=== PATIENT | male | born 1970 | race Caucasian/White ===

== ENCOUNTER 2017-03-21 10:36 | Inpatient (IN) | payer BC, OTHER ==
[2017-03-21 11:12] LABS: #Basophils 0.1 thou/uL (0.0-0.2); #Eosinphils 0.2 thou/uL (0.0-0.7); #Lymphocytes 2.7 thou/uL (1.20-3.40); #Monocytes 0.6 thou/uL (0.11-0.59); #Neutrophils 2.9 thou/uL (1.40-6.50); %Basophils 0.9 % (0.0-1.0); %Eosinophils 2.6 % (0.0-10.0); %Monocytes 9.7 % (0.0-10.0); %Neutrophils 44.8 % (42.0-75.0); Hemoglobin 16.3 g/dL (14.0-18.0); Mean Corpuscular HGB CONC 34.8 g/dL (32.0-36.0); Mean Corpuscular Hemoglobin 32.4 pg (27.0-31.0); Mean Corpuscular Volume 93.3 fl (80.0-94.0); Mean Platelet Volume 7.5 fL (7.4-10.4); Platelet Count 282 thou/uL (130-400); RBC Distribution Width 11.4 % (11.5-14.5); Red Blood Cell (RBC) Count 5.03 mill/uL (4.70-6.10); White Blood Cell (WBC) Count 6.5 thou/uL (4.8-10.8)
--- NOTE | 2017-03-21 11:23 | RAD ---
PORTABLE CHEST: Date: 03/21/17 PROVIDED CLINICAL HISTORY: Chest pain. FINDINGS: Comparison with 11/13/12. Cardiac and mediastinal silhouette is unchanged in appearance. Left subclavian cardiac pacing device is again noted in similar location. This obscures portions of the left upper chest. Given this limita tion, there is no focal air space disease, pleural fluid, or pneumothorax apparent. IMPRESSION: No evidence for an acute cardiopulmonary process with limitations as above. POS: [facility]
[2017-03-21 11:44] LABS: ALT (SGPT) 62 U/L (8-55); AST (SGOT) 37 U/L (5-34); Albumin 4.6 g/dL (3.5-5.0); Alkaline Phosphatase 45 U/L (40-150); Anion Gap 13 mmol/L (10-20); BUN (Urea Nitrogen) 9 mg/dL (8.9-20.6); Bilirubin, Total 0.4 mg/dL (0.2-1.2); CK (CPK) 305 U/L (30-200); Calc. Creatinine Clearance 0 mL/min (70-130); Calcium 9.8 mg/dL (7.8-10.44); Carbon Dioxide 20 mmol/L (22-29); Chloride 103 mmol/L (98-107); Estimated GFR-MDRD Greater than 90; Globulin 2.9 g/dL (2.4-3.5); Glucose 280 mg/dL (70-105); Lipase 30 U/L (8-78); Protein, Total 7.5 g/dL (6.0-8.3); Sodium 132 mmol/L (136-145)
[2017-03-21 11:46] LABS: CKMB 6.1 ng/mL (0-6.6)
[2017-03-21 11:49] LABS: Troponin I 0.659 ng/mL (< 0.028)
[2017-03-21] MEDS ORDERED: Nitroglycerin 2% Ointment 1 INCH/1 GM Packet ONE (12:18)
[2017-03-21] MEDS ORDERED: Enoxaparin Sodium 40 MG/0.4 ML SYRINGE ONE (12:18)
[2017-03-21] MEDS ORDERED: Enoxaparin Sodium 100 MG/ML SYRINGE ONE (12:18)
--- NOTE | 2017-03-21 14:12 | HP ---
PRIMARY CARE PHYSICIAN: Sy Burch M.D. CHIEF COMPLAINT: Chest pressure. HISTORY OF PRESENT ILLNESS: This is a 46-year-old white male with insulin-dependent diabetes mellitu s as well as history of vasospastic angina who previously had a defibrillator placed and follows with Dr. Castelan, had stent 10 years ago, but no catheterization since then. Patient reports that he wa s feeling fine until about 3-6 months ago when he started developing chest pressure, squeezing sensat ion usually was at night. Dr. Castelan adjusted his medications around and then early this morning a round 5:30, patient developed severe squeezing chest pain, felt like an anaconda wrapped around his c hest, pain was radiating to his back, also radiating up into his jaw. No associated symptoms besides some shortness of breath and dizziness. The pain lasted for about 4-5 hours, quit around 10:00 this morning. Because as it lasted much longer than previous episodes, he came into the emergency room. In the ER, the patient was found to have an elevated troponin of 0.6. His EKG was unremarkable. Th e patient is being admitted for non-ST elevation LA. PAST MEDICAL HISTORY: 1. Vasospastic angina. 2. Hypertension. 3. Hyperlipidemia. 4. Hypertriglyceridemia. 5. Diabetes mellitus type 2, insulin-dependent. PAST SURGICAL HISTORY: 1. Defibrillator/pacemaker placement. 2. Cardiac stent x1. 3. Left ACL surgery. 4. Hernia repair. PAST PSYCHIATRIC HISTORY: Anxiety. SOCIAL HISTORY: Patient is a previous smoker, quit 8 months ago. No illicit drug use, drinks social ly. FAMILY HISTORY: One brother with vasospastic angina. One brother of a heart attack in his 30s. Mother had a triple bypass surgery. No family history of diabetes. ALLERGIES: No known drug allergies. CURRENT MEDICATIONS: 1. Aspirin 325 mg daily. 2. Basaglar insulin 20 units subcu each morning. 3. Xanax 0.5 mg as needed for anxiety, uses just about once a week or so. 4. Metoprolol extended release 50 mg daily. 5. Fenofibrate 145 mg daily. 6. Isosorbide mononitrate 120 mg each night. 7. Diltiazem, unknown dose twice a day. 8. Niacin 1000 mg at night. 9. Atorvastatin 20 mg daily. REVIEW OF SYSTEMS: Constitutional: No fevers, no chills. Eyes: No double vision or blurred vision . ENT: No congestion, drainage or sore throat. Cardiovascular: See HPI. Pulmonary: He has bronchitis with prolonged cough last month that has mostly gone now, and occasiona l cough, nonproductive. No wheezing, no shortness of breath. Currently, he did have a little bit of shortness of breath with this chest pain earlier. Gastrointestinal: No abdominal pain, no nausea, vomiting, no diarrhea or constipation. He does get runny stools occasionally. Genitourinary: No dysuria or hematuria. Musculoskeletal: He has some chronic low back pain from pr evious fracture of the spine. Skin: No rashes or other lesions he is noted. Neurologic: No numbne ss, tingling or focal weakness. PHYSICAL EXAMINATION: VITAL SIGNS: Blood pressure 137/89, pulse 71, respirations 12, temperature 97.4, O2 sat 96% on room air. GENERAL: This is a well-developed, obese white male, in no apparent distress. HEENT: Pupils equally round and reactive to light. Oropharynx clear without lesions, erythema or ex udate. NECK: Supple, no lymphadenopathy, no thyroid nodules or enlargement, no JVD. HEART: Regular rate and rhythm, no murmurs, rubs or gallops. LUNGS: Clear to auscultation bilaterally, no wheezes, crackles or rhonchi. ABDOMEN: Soft, nontender to palpation, normoactive bowel sounds, no hepatosplenomegaly or other mass es. EXTREMITIES: No clubbing, cyanosis or edema. SKIN: No rashes or other lesions noted. NEUROLOGIC: The patient has intact strength and reflexes in all extremities and no facial droop. PSYCHIATRIC: Alert and oriented x3, normal mood and affect. LABORATORY DATA AND IMAGING: CBC within normal limits. Complete metabolic panel notable for a sodiu m of 132, carbon dioxide of 20, glucose of 280, AST elevated at 37, ALT 62. These are new elevations . Creatinine kinase is elevated at 305, and the rest of CMP was normal. His troponin was 0.659 and CK-MB was 6.1. Brain natriuretic peptide was 56. Chest x-ray: I did review the chest x-ray done in the emergency room along with the radiologist's report. There is a previous pacer in place, no acut e findings, no infiltrates in the lungs. EKG: I did review the EKG done in the emergency room, whic h shows an atrial paced rhythm with normal axis, no ST segment changes, no T-wave changes, no evidenc e of acute ischemia. ASSESSMENT: 1. Non-ST elevation myocardial infarction. This is possibly due to patient's vasospastic angina magdaleno jeffrey progressive coronary artery disease over the last 10 years since he last had a catheterization an d a stent. The patient has been given Lovenox in the emergency room. [facility] to [facility] t [facility] along with full dose of Lovenox and we will consult Dr. Castelan. Dr. Colvin is technology adoption manager to day for him. 2. Hypertension. We will resume home blood pressure medications. 3. Hyperlipidemia. We will resume atorvastatin. 4. Insulin-dependent diabetes mellitus. We will resume patient's morning long-acting insulin along with a low insulin sliding scale and diabetic diet. 5. Gastrointestinal prophylaxis. Put the patient on Pepcid twice a day. 6. Deep venous thrombosis prophylaxis. Patient is already on Lovenox. CODE STATUS: Patient is a FULL CODE. Should he be incapacitated, his , Darlin Bradley would be hi s medical power of real estate attorney.
[2017-03-21 14:55] LABS: Troponin I 3.402 ng/mL (< 0.028)
[2017-03-21] MEDS ORDERED: Ondansetron HCl/PF 4 MG/2 ML Vial IVP PRN (15:09)
[2017-03-21] MEDS ORDERED: ALPRAZolam 0.5 MG TAB PO PRN (15:09)
[2017-03-21] MEDS ORDERED: Ondansetron ODT 4 MG TAB PO PRN (15:09)
[2017-03-21] MEDS ORDERED: Bisacodyl 5 MG TAB PO PRN (15:09)
[2017-03-21] MEDS ORDERED: Acetaminophen 650 MG Suppository PR PRN (15:09)
[2017-03-21] MEDS ORDERED: Dextrose 5% in Water 1,000 ML IV PRN (15:09)
[2017-03-21] MEDS ORDERED: Acetaminophen 325 MG TAB PO PRN (15:09)
[2017-03-21] MEDS ORDERED: Dextrose 50% Abboject 50 ML SYRINGE SLOW IVP PRN (15:09)
[2017-03-21] MEDS: Nitroglycerin 2% Ointment 1 INCH/1 GM Packet TOP SCH ×2 (16:40→21:15)
[2017-03-21 16:56] VITALS: BMI 36.2
[2017-03-21] MEDS: HumaLOG 300 UNITS/3 ML VIAL SC PRN ×2 (17:03→22:05)
[2017-03-21 17:38] LABS: Troponin I 5.524 ng/mL (< 0.028)
--- NOTE | 2017-03-21 18:01 | CON ---
DATE OF CONSULTATION: 03/21/2017 REASON FOR CONSULTATION: Non-Q wave myocardial infarction. PRIMARY PROFESSIONAL DRIVER: Wilbur Castelan M.D. REFERRING PROVIDER: Eran Cyr M.D. HISTORY OF PRESENT ILLNESS: Mr. Bradley is a very pleasant 46-year-old gentleman who has been seen an d evaluated by Dr. iWlbur Castelan in the past. He has a history of CAD, status post stent placement . He recently states he was seen by Dr. Wilbur Castelan several months ago. His medications were ad justed to evening dosage. His symptoms of angina improved, but have recurred. He states this mornin g he had an episode of pain for 4 hours. It has not completely resolved. He is back to his normal s mosqueda. He did receive an injection of Lovenox while in the emergency room. PAST MEDICAL HISTORY: Hypertension, ICD, diabetes mellitus, hyperlipidemia, CAD status post stent pl acement to the LAD with a Taxus stent in 2007, hypertriglyceridemia, and diabetes mellitus. ALLERGIES: None. HOME MEDICATIONS: Include atorvastatin, aspirin, metformin, Xanax, Cardizem, Nitrostat, metoprolol, isosorbide, Niaspan and Antara. REVIEW OF SYSTEMS: Ten-point review of systems is reviewed and is as above negative. PHYSICAL EXAMINATION: GENERAL: Patient is a pleasant male who is in no acute distress. The patient appears his stated age. VITAL SIGNS: Blood pressure 130/73, pulse 76, temperature 98. NEUROLOGIC: The patient is alert and oriented times 3 with no focal neurologic deficits. HEENT: Sclerae without icterus. Mouth has moist mucous membranes with normal pallor. NECK: No JVD. Carotid upstroke brisk. No bruits bilaterally. LUNGS: Clear to auscultation with unlabored respirations. BACK: No scoliosis or kyphosis. CARDIAC: Regular rate and rhythm with normal S1 and S2. No S3 or S4 noted. No significant rubs, mu rmurs, thrills, or gallops noted throughout the precordium. PMI is not displaced. There is no frantz ternal heave. ABDOMEN: Soft, nontender, nondistended. No peritoneal signs present. No hepatosplenomegaly. No ab normal striae. EXTREMITIES: 2+ femoral and 2+ dorsalis pedis pulses. No cyanosis, clubbing, or edema. SKIN: No gross abnormalities. LABORATORY DATA: Hemoglobin 16.3, peak troponin 3.402, creatinine 0.82, sodium 132. EKG: Normal sinus rhythm with nonspecific ST-T wave changes. IMPRESSION: Non-Q wave myocardial infarction. RECOMMENDATIONS: Mr. Bradley is currently doing well. He has no current symptoms. He is asymptomati c. He did receive Lovenox. We would continue Lovenox at 1 mg/kg q.12 h. We will add loading dose of Plavix. We would continue to monitor his blood pressure and heart rate closely and make adjustments if needed. He will need angiography on Friday. I discussed the procedure in full detail with Mr. Nydia arce. Risks included but are not limited to the following: , stroke, [place], need for emergency s urgery, loss of limb, bleeding, and infection, as well as a reaction to the dye causing kidney failur e and needing long-term dialysis. I also discussed the risks of PCI to include all of the above incl uding coronary dissection and perforation in addition to acute stent thrombosis and restenosis. All questions about the procedure were answered. Given the above, the patient agreed to proceed with cor onary angiography and possible PCI. All questions were answered. There are no contraindications to drug-coated stent placement and will proceed if needed. Further recommendations pending the above.
[2017-03-21] MEDS ORDERED: Enoxaparin Sodium 80 MG/0.8 ML SYRINGE SC SCH (21:00)
[2017-03-21] MEDS: Atorvastatin Calcium 20 MG TAB PO SCH (21:14)
[2017-03-21] MEDS: Docusate 100 MG CAP PO SCH (21:16)
[2017-03-21] MEDS: Famotidine 20 MG TAB PO SCH (21:17)
[2017-03-21] MEDS: Enoxaparin Sodium 40 MG/0.4 ML SYRINGE SC SCH (22:03)
[2017-03-21] MEDS: Enoxaparin Sodium 100 MG/ML SYRINGE SC SCH (22:03)
[2017-03-22] MEDS: Nitroglycerin 2% Ointment 1 INCH/1 GM Packet TOP SCH ×3 (04:47→20:39)
[2017-03-22 05:22] LABS: #Basophils 0.1 thou/uL (0.0-0.2); #Eosinphils 0.2 thou/uL (0.0-0.7); #Lymphocytes 3.6 thou/uL (1.20-3.40); #Monocytes 0.8 thou/uL (0.11-0.59); #Neutrophils 3.2 thou/uL (1.40-6.50); %Basophils 1.1 % (0.0-1.0); %Eosinophils 2.4 % (0.0-10.0); %Lymphocytes 46.1 % (21.0-51.0); %Monocytes 9.8 % (0.0-10.0); %Neutrophils 40.6 % (42.0-75.0); Hemoglobin 15.4 g/dL (14.0-18.0); Mean Corpuscular HGB CONC 34.6 g/dL (32.0-36.0); Mean Corpuscular Hemoglobin 32.4 pg (27.0-31.0); Mean Corpuscular Volume 93.6 fl (80.0-94.0); Mean Platelet Volume 7.5 fL (7.4-10.4); Platelet Count 266 thou/uL (130-400); RBC Distribution Width 11.4 % (11.5-14.5); Red Blood Cell (RBC) Count 4.74 mill/uL (4.70-6.10); White Blood Cell (WBC) Count 7.9 thou/uL (4.8-10.8)
[2017-03-22 05:48] LABS: ALT (SGPT) 55 U/L (8-55); AST (SGOT) 41 U/L (5-34); Albumin 3.8 g/dL (3.5-5.0); Alkaline Phosphatase 42 U/L (40-150); Anion Gap 15 mmol/L (10-20); BUN (Urea Nitrogen) 11 mg/dL (8.9-20.6); Bilirubin, Total 0.6 mg/dL (0.2-1.2); Calc. Creatinine Clearance 224 mL/min (70-130); Calcium 9.4 mg/dL (7.8-10.44); Carbon Dioxide 19 mmol/L (22-29); Chloride 105 mmol/L (98-107); Cholesterol 95 mg/dl (< 200 Desired); Estimated GFR-MDRD Greater than 90; Globulin 2.8 g/dL (2.4-3.5); Glucose 219 mg/dL (70-105); HDL Cholesterol 24 mg/dL (>60 Neg Risk); LDL Cholesterol, Calculated 23 mg/dL; Potassium 4.3 mmol/L (3.5-5.1); Protein, Total 6.6 g/dL (6.0-8.3); Sodium 135 mmol/L (136-145); Triglycerides 238 mg/dL (Less than 150)
[2017-03-22] MEDS: Fenofibrate Nanocrystallized 145 MG TAB PO SCH (08:19)
[2017-03-22] MEDS: Famotidine 20 MG TAB PO SCH ×2 (08:19→20:37)
[2017-03-22] MEDS: Enoxaparin Sodium 100 MG/ML SYRINGE SC SCH ×2 (08:19→20:37)
[2017-03-22] MEDS: Aspirin 325 MG TAB PO SCH (08:19)
[2017-03-22] MEDS: Docusate 100 MG CAP PO SCH ×2 (08:20→20:37)
[2017-03-22] MEDS: Enoxaparin Sodium 40 MG/0.4 ML SYRINGE SC SCH ×2 (08:20→20:38)
[2017-03-22] MEDS: Insulin Detemir 100 UNITS/ML 20 UNITS in Pre-Filled Syringe SC SCH (09:46)
[2017-03-22] MEDS: HumaLOG 300 UNITS/3 ML VIAL SC PRN ×3 (11:52→20:38)
--- NOTE | 2017-03-22 13:04 | PDOC.PN ---
- Subjective Encounter Start Date: 03/22/17 Encounter Start Time: 13:02 CC: Chest pain Sub: Pt says chest pain improved - Objective Resuscitation Status: Resuscitation Status FULL:Full Resuscitation Vital Signs & Weight: Vital Signs (12 hours) Temp Pulse Resp BP Pulse Ox 03/22/17 12:26 98.6 F 76 20 125/67 95 03/22/17 08:14 98.6 F 82 17 115/70 96 03/22/17 08:00 98.6 F 82 17 03/22/17 04:51 98.2 F 75 16 101/55 L 96 Result Diagrams: 03/22/17 04:44 03/22/17 04:44 Additional Labs: Accuchecks 03/22/17 03/22/17 03/21/17 11:45 06:04 20:15 POC Glucose 212 H 201 H 258 H 03/21/17 03/21/17 17:09 16:07 POC Glucose 270 H 316 H Phys Exam - Physical Examination Constitutional: NAD HEENT: moist MMs Neck: no JVD Respiratory: no wheezing, no rales, no rhonchi Cardiovascular: RRR, no significant murmur, no rub Gastrointestinal: soft, non-tender distenstion, no guarding Musculoskeletal: no edema Neurological: non-focal, moves all 4 limbs Psychiatric: normal affect, A&O x 3 Skin: no rash Dx/Plan - Plan * . Pt is 46 yrs old male now admitted to hospital due to chest pain 1, NSTEMI: Cradio on board. Appreciate their input Cath on friday. Continue lovenox. 2. HTN: Monitor bp closely Continue bp meds 3. H/O DM type 2: Monitor blood sugars closely continue insulin sliding scale 4. H/O HPL: Continue fenofibrate case d/w pt & RN
[2017-03-22 13:47] LABS: Critical Call Chem Troponin I RESULT DECREASING; Troponin I 2.325 ng/mL (< 0.028)
[2017-03-22] MEDS: Atorvastatin Calcium 20 MG TAB PO SCH (20:36)
[2017-03-23] MEDS: Nitroglycerin 2% Ointment 1 INCH/1 GM Packet TOP SCH ×3 (06:20→22:38)
[2017-03-23] MEDS ORDERED: Communication Order-Pharmacy FS SCH ×2 (09:15→10:45)
[2017-03-23] MEDS: Docusate 100 MG CAP PO SCH ×2 (09:25→20:39)
[2017-03-23] MEDS: Famotidine 20 MG TAB PO SCH ×2 (09:25→20:39)
[2017-03-23] MEDS: Aspirin 325 MG TAB PO SCH (09:25)
[2017-03-23] MEDS: Fenofibrate Nanocrystallized 145 MG TAB PO SCH (09:25)
[2017-03-23] MEDS: Insulin Detemir 100 UNITS/ML 20 UNITS in Pre-Filled Syringe SC SCH (09:26)
[2017-03-23] MEDS: Enoxaparin Sodium 100 MG/ML SYRINGE SC SCH ×2 (09:26→20:40)
[2017-03-23] MEDS: Enoxaparin Sodium 40 MG/0.4 ML SYRINGE SC SCH ×2 (09:27→20:39)
[2017-03-23] MEDS ORDERED: Calamine/Zinc Oxide 177 ML LOTION TP PRN (12:29)
[2017-03-23] MEDS: HumaLOG 300 UNITS/3 ML VIAL SC PRN ×2 (12:33→18:11)
[2017-03-23] MEDS: Hydrocortisone 1% Cream 30 GM TUBE TOP SCH ×2 (12:41→22:39)
--- NOTE | 2017-03-23 14:17 | PDOC.PN ---
- Subjective Encounter Start Date: 03/23/17 Encounter Start Time: 14:15 CC; Chest pain sub: Pt says he feels better, denies chest pain - Objective Resuscitation Status: Resuscitation Status FULL:Full Resuscitation Vital Signs & Weight: Vital Signs (12 hours) Temp Pulse Resp BP BP Pulse Ox 03/23/17 12:44 98.5 F 70 17 116/70 96 03/23/17 08:07 97.6 F 74 18 109/75 93 L 03/23/17 07:58 97.6 F 74 16 93 L 03/23/17 06:17 80 16 110/65 03/23/17 04:00 97.2 F L 70 18 100/66 95 Weight Weight 299 lb 6.204 oz I&O: 03/22/17 03/23/17 03/24/17 06:59 06:59 06:59 Intake Total 1520 240 Output Total 2500 Balance -980 240 Result Diagrams: 03/22/17 04:44 03/22/17 04:44 Additional Labs: Accuchecks 03/23/17 03/23/17 03/22/17 11:09 05:58 20:17 POC Glucose 195 H 188 H 213 H 03/22/17 16:35 POC Glucose 236 H Dx/Plan - Plan Physical Examination Constitutional: NAD, sitting on bed HEENT: moist MMs Neck: no JVD Respiratory: no wheezing, no rales, no rhonchi Cardiovascular: RRR, no significant murmur, no rub Gastrointestinal: soft, non-tender, positive distenstion, no guarding Musculoskeletal: no edema, moves all joints Neurological: non-focal, moves all 4 limbs Psychiatric: normal affect, A&O x 3 Skin: no rash Dx/Plan Pt is 46 yrs old male now admitted to hospital due to chest pain 1, NSTEMI: Cardio on board. Appreciate their input Cath on friday. Continue lovenox. Episode of chest pain last night but resolved now. 2. HTN: Monitor bp closely Continue bp meds 3. H/O DM type 2: Monitor blood sugars closely continue insulin sliding scale 4. H/O HPL: Continue fenofibrate case d/w pt & RN, pt & two kids
[2017-03-23 14:43] LABS: #Basophils 0.1 thou/uL (0.0-0.2); #Eosinphils 0.2 thou/uL (0.0-0.7); #Lymphocytes 3.2 thou/uL (1.20-3.40); #Monocytes 0.6 thou/uL (0.11-0.59); #Neutrophils 2.5 thou/uL (1.40-6.50); %Basophils 2.1 % (0.0-1.0); %Eosinophils 3.4 % (0.0-10.0); %Lymphocytes 47.8 % (21.0-51.0); %Monocytes 9.2 % (0.0-10.0); %Neutrophils 37.5 % (42.0-75.0); Mean Corpuscular HGB CONC 34.4 g/dL (32.0-36.0); Mean Corpuscular Hemoglobin 32.3 pg (27.0-31.0); Mean Corpuscular Volume 93.8 fl (80.0-94.0); Mean Platelet Volume 7.5 fL (7.4-10.4); Platelet Count 275 thou/uL (130-400); RBC Distribution Width 11.4 % (11.5-14.5); Red Blood Cell (RBC) Count 4.95 mill/uL (4.70-6.10); White Blood Cell (WBC) Count 6.7 thou/uL (4.8-10.8)
[2017-03-23 15:02] LABS: Anion Gap 13 mmol/L (10-20); BUN (Urea Nitrogen) 14 mg/dL (8.9-20.6); Calc. Creatinine Clearance 167 mL/min (70-130); Calcium 9.6 mg/dL (7.8-10.44); Carbon Dioxide 26 mmol/L (22-29); Chloride 101 mmol/L (98-107); Estimated GFR-MDRD 76; Glucose 251 mg/dL (70-105); Potassium 4.1 mmol/L (3.5-5.1); Sodium 136 mmol/L (136-145)
--- NOTE | 2017-03-23 15:08 | CON ---
DATE OF CONSULTATION: 03/23/2017 HISTORY OF PRESENT ILLNESS: Mr. Bradley had an episode of chest pain last night, it was short-lived. EKG did show significant T-wave changes. He is currently asymptomatic and has been since early this morning. No other associated ameliorating or precipitating factors present. PHYSICAL EXAMINATION: VITAL SIGNS: Blood pressure 109/75, pulse 80, respirations 20. GENERAL: Alert and oriented x3. NECK: No JVD. LUNGS: Clear to auscultation. CARDIAC: Regular rate and rhythm. ABDOMEN: Soft, nontender, nondistended. EXTREMITIES: No edema. IMPRESSION: 1. Non-ST segment elevation myocardial infarction. 2. Elevated troponin. 3. Status post implantable cardioverter defibrillator. RECOMMENDATIONS: Plan on angiography in a.m. I discussed the procedure in full detail with Mr. Bryanna johns. The risks of the procedure were also discussed. The risks of the procedure include but are not limited to the following: , stroke, [place], need for emergency surgery, loss of limb, bleeding, and infection, as well as a reaction to the dye causing kidney failure and needing long-term dialysis. I also discussed the risks of PCI to include all of the above including coronary dissection and perfo ration in addition to acute stent thrombosis and restenosis. All questions about the procedure were answered. Given the above, the patient agreed to proceed with coronary angiography and possible PCI. All questions about the procedure were answered. Further recommendations per Dr. Wilbur Castelan i jenny a.m.
[2017-03-23] MEDS: Sodium Chloride 0.9% 1,000 ML IV SCH (18:10)
[2017-03-23] MEDS: Atorvastatin Calcium 20 MG TAB PO SCH (20:39)
[2017-03-23] MEDS ORDERED: Sodium Chloride 0.9% 1,000 ML IV SCH (22:00)
[2017-03-24] MEDS: Sodium Chloride 0.9% 1,000 ML IV SCH ×2 (02:36→06:08)
[2017-03-24 05:15] LABS: #Basophils 0.1 thou/uL (0.0-0.2); #Eosinphils 0.3 thou/uL (0.0-0.7); #Lymphocytes 3.6 thou/uL (1.20-3.40); #Monocytes 0.7 thou/uL (0.11-0.59); #Neutrophils 2.9 thou/uL (1.40-6.50); %Basophils 1.5 % (0.0-1.0); %Eosinophils 3.9 % (0.0-10.0); %Lymphocytes 47.2 % (21.0-51.0); %Monocytes 9.7 % (0.0-10.0); %Neutrophils 37.7 % (42.0-75.0); Mean Corpuscular Hemoglobin 32.4 pg (27.0-31.0); Mean Corpuscular Volume 92.6 fl (80.0-94.0); Mean Platelet Volume 7.9 fL (7.4-10.4); Platelet Count 251 thou/uL (130-400); RBC Distribution Width 11.2 % (11.5-14.5); Red Blood Cell (RBC) Count 4.64 mill/uL (4.70-6.10); White Blood Cell (WBC) Count 7.6 thou/uL (4.8-10.8)
[2017-03-24 05:47] LABS: Anion Gap 16 mmol/L (10-20); BUN (Urea Nitrogen) 17 mg/dL (8.9-20.6); Calc. Creatinine Clearance 211 mL/min (70-130); Calcium 9.1 mg/dL (7.8-10.44); Carbon Dioxide 18 mmol/L (22-29); Chloride 104 mmol/L (98-107); Estimated GFR-MDRD Greater than 90; Glucose 214 mg/dL (70-105); Potassium 4.5 mmol/L (3.5-5.1); Sodium 133 mmol/L (136-145)
[2017-03-24] MEDS: Aspirin 325 MG TAB PO SCH (06:06)
[2017-03-24] MEDS: Nitroglycerin 2% Ointment 1 INCH/1 GM Packet TOP SCH ×3 (06:06→22:10)
[2017-03-24] MEDS: Fenofibrate Nanocrystallized 145 MG TAB PO SCH (06:07)
[2017-03-24] MEDS: Famotidine 20 MG TAB PO SCH ×2 (06:07→22:06)
[2017-03-24] MEDS: Docusate 100 MG CAP PO SCH ×3 (06:07→22:16)
[2017-03-24] MEDS ORDERED: Sodium Bicarbonate Tab 325 MG TAB PO SCH (08:00)
[2017-03-24] MEDS: Insulin Detemir 100 UNITS/ML 20 UNITS in Pre-Filled Syringe SC SCH (08:41)
[2017-03-24] MEDS: Hydrocortisone 1% Cream 30 GM TUBE TOP SCH ×2 (08:45→22:07)
[2017-03-24] MEDS ORDERED: Communication Order-Pharmacy FS SCH (10:30)
[2017-03-24] MEDS ORDERED: Heparin 10,000 UNITS/1 ML VIAL ONE ×2 (11:42→13:50)
[2017-03-24] MEDS ORDERED: Iopamidol 370 76% 50 ML VIAL FS ONE (12:17)
[2017-03-24] MEDS ORDERED: Iopamidol 370 76% 100 ML VIAL ONE (12:17)
[2017-03-24] MEDS ORDERED: Fentanyl 100 MCG/2 ML VIAL ONE (14:28)
[2017-03-24] MEDS ORDERED: Midazolam HCl 2 mg/2 ml Vial ONE (14:29)
[2017-03-24] MEDS ORDERED: Protamine Sulfate 50 MG/5 ML VIAL ONE (14:59)
[2017-03-24] MEDS ORDERED: Acetaminophen/Codeine 30-300mg Tablet PO PRN (15:21)
[2017-03-24] MEDS ORDERED: Nitroglycerin 0.4 MG TAB (25 Tab Bottle) SL PRN (15:21)
[2017-03-24] MEDS ORDERED: traMADol HCl 50 MG TAB PO PRN (15:21)
[2017-03-24] MEDS ORDERED: Sodium Chloride 0.9% 1,000 ML IV SCH (15:24)
[2017-03-24] MEDS ORDERED: Sodium Chloride 0.9% 200 ML IV SCH (15:30)
--- NOTE | 2017-03-24 15:49 | PDOC.PN ---
- Subjective Encounter Start Date: 03/24/17 Encounter Start Time: 15:56 Subjective: No complaints. Chest pain free -: No acute events overnight. - Objective Resuscitation Status: Resuscitation Status FULL:Full Resuscitation MAR Reviewed: Yes Vital Signs & Weight: Vital Signs (12 hours) Temp Pulse Resp BP BP Pulse Ox 03/24/17 13:16 97.2 F L 74 17 122/71 95 03/24/17 08:00 98.2 F 75 18 95 03/24/17 07:50 98.2 F 75 18 115/67 95 03/24/17 06:02 97.4 F L 76 16 115/62 93 L Weight Weight 302 lb 0.533 oz I&O: 03/23/17 03/24/17 03/25/17 06:59 06:59 06:59 Intake Total 1520 2330 Output Total 2500 3500 Balance -980 -1170 Result Diagrams: 03/24/17 04:40 03/24/17 04:40 Additional Labs: Accuchecks 03/24/17 03/24/17 03/23/17 12:32 06:00 19:51 POC Glucose 198 H 206 H 256 H 03/23/17 17:29 POC Glucose 204 H Phys Exam - Physical Examination Constitutional: NAD HEENT: PERRLA, moist MMs, sclera anicteric Neck: supple, full ROM Respiratory: no wheezing, no rales, no rhonchi, clear to auscultation bilateral Cardiovascular: RRR, no significant murmur, no rub Gastrointestinal: soft, non-tender, no distention, positive bowel sounds Musculoskeletal: no edema, pulses present Neurological: non-focal, moves all 4 limbs Psychiatric: normal affect, A&O x 3 Skin: no rash, normal turgor Dx/Plan (1) NSTEMI (non-ST elevated myocardial infarction) Code(s): I21.4 - NON-ST ELEVATION (NSTEMI) MYOCARDIAL INFARCTION Status: Acute Comment: Stable. Chest pain free, [facility] planned for 2/5 Continue ASA, Statins. f/u cardiology recs (2) HTN (hypertension) Code(s): I10 - ESSENTIAL (PRIMARY) HYPERTENSION Status: Acute Qualifiers: Hypertension type: essential hypertension Qualified Code(s): I10 - Essential (primary) hypertension Plan: Continue current management Comment: At goal (3) Type 2 diabetes mellitus Status: Acute Qualifiers: Diabetes mellitus complication status: with hyperglycemia Diabetes mellitus ocean transportation intermediary insulin use: with residential use Qualified Code(s): E11.65 - Type 2 diabetes mellitus with hyperglycemia; Z79.4 - intermediate project manager (current) use of insulin; Z79.4 - intermediate (current) use of insulin; Z79.4 - intermediate ( current) use of insulin; Z79.4 - intermediate (current) use of insulin Plan: Continue current management Comment: Fair control (4) HLD (hyperlipidemia) Code(s): E78.5 - HYPERLIPIDEMIA, UNSPECIFIED Status: Acute Qualifiers: Hyperlipidemia type: pure hyperglyceridemia Qualified Code(s): E78.1 - Pure hyperglyceridemia Comment: COntinue Atorvastatin and fibrates - Plan cont current plan of care, plan discussed w/ family, DVT proph w/lovenox * .
[2017-03-24] MEDS: Sodium Bicarbonate Tab 325 MG TAB PO SCH ×2 (17:01→22:07)
[2017-03-24] MEDS: Acetaminophen/Codeine 30-300mg Tablet PO PRN ×2 (18:15→22:09)
[2017-03-24] MEDS: Atorvastatin Calcium 20 MG TAB PO SCH (22:06)
--- NOTE | 2017-03-24 23:24 | CON ---
DATE OF CONSULTATION: 03/24/2017 HISTORY OF PRESENT ILLNESS: Mr. Bradley is a 46-year-old gentleman with history of coronary artery di sease, uncontrolled diabetes mellitus, obesity, hypertension, who had a coronary stent placed approxi mately 10 years ago. He has been experiencing chest tightness with increasing frequency and on day had a long episode which caused him to go to the Emergency Department. He was evaluated and admi tted from the emergency department. He underwent cardiac catheterization today which reveals multifo vivian LAD stenosis, proximal circumflex and mid RCA stenosis. He has bypassable LAD, circumflex and PD A targets. His ejection fraction is approximately 50%. I have been asked to see him to discuss umang nary artery bypass grafting. Of note, the patient has an ICD which was placed at [facility] in [place] in. PAST MEDICAL HISTORY: 1. Coronary artery disease. 2. ICD. 3. Diabetes mellitus. 4. Hyperlipidemia. 5. Obesity. 6. Hypertension. PAST SURGICAL HISTORY: ICD placement. ALLERGIES: None. HOME MEDICATIONS: 1. Atorvastatin. 2. Aspirin. 3. Metformin. 4. Xanax. 5. Cardizem. 6. Nitrostat. 7. Metoprolol. 8. Isosorbide. 9. Niaspan. 10. Antara. REVIEW OF SYSTEMS: Ten point review of systems is performed and is negative except as above. PHYSICAL EXAMINATION: GENERAL: This is an obese gentleman resting comfortably in bed without complaint. VITAL SIGNS: Height 6 feet 6 inches, weight 302 pounds, BSA is 2.75. Temperature is 97.2, pulse is 74 and regular, blood pressure 122/71. HEENT: Sclerae nonicteric. Pupils equal, round bilaterally. NECK: Supple, without carotid bruit. CHEST: Clear bilaterally. HEART: Rhythm is regular, without murmur. ABDOMEN: Soft and nontender, without mass. EXTREMITIES: No cyanosis, clubbing or edema. VASCULAR: He has palpable carotid, radial, femoral, and dorsalis pedis pulses bilaterally. VENOUS: There are no venous varicosities or venous stasis changes. PSYCHIATRIC: The patient is awake, alert, and oriented to person, place, and time. ASSESSMENT AND PLAN: This is a 46-year-old gentleman with 3-vessel disease in need of coronary arter y bypass grafting. The patient and his are both disgruntled in the level of care that they received here. They peggy p comparing their care to what they received at [facility] in [place] and said this is definite a mehdi p or 2 below. He is complaining of things such as not getting pain medicine when he asked for, kelly g something biting him -- he thinks there are bed bugs in the bed, the room is not clean, etc. He is considering discharge and transferred to another hospital. I have tried to settle him, but right no w he appears to be fairly set that he is going to ask to be either transferred or be discharged so he can be readmitted in another institution. I have discussed coronary artery bypass grafting in [facility] with him and he is agreeable to proceed. He is just not sure he wants to have the surgery done her e at [facility].
[2017-03-25] MEDS: Sodium Bicarbonate Tab 325 MG TAB PO SCH ×3 (04:37→21:59)
[2017-03-25] MEDS: Acetaminophen/Codeine 30-300mg Tablet PO PRN ×5 (04:37→23:30)
[2017-03-25] MEDS: Nitroglycerin 2% Ointment 1 INCH/1 GM Packet TOP SCH ×3 (04:38→21:58)
[2017-03-25 05:28] LABS: #Eosinphils 0.2 thou/uL (0.0-0.7); #Lymphocytes 2.4 thou/uL (1.20-3.40); #Monocytes 0.6 thou/uL (0.11-0.59); %Basophils 0.4 % (0.0-1.0); %Eosinophils 2.5 % (0.0-10.0); %Lymphocytes 38.8 % (21.0-51.0); %Monocytes 9.3 % (0.0-10.0); Hemoglobin 13.6 g/dL (14.0-18.0); Mean Corpuscular HGB CONC 33.9 g/dL (32.0-36.0); Mean Corpuscular Hemoglobin 31.5 pg (27.0-31.0); Mean Corpuscular Volume 92.9 fl (80.0-94.0); Platelet Count 244 thou/uL (130-400); RBC Distribution Width 11.4 % (11.5-14.5); Red Blood Cell (RBC) Count 4.32 mill/uL (4.70-6.10); White Blood Cell (WBC) Count 6.2 thou/uL (4.8-10.8)
[2017-03-25 05:55] LABS: Anion Gap 11 mmol/L (10-20); BUN (Urea Nitrogen) 17 mg/dL (8.9-20.6); Calc. Creatinine Clearance 104 mL/min (70-130); Calcium 8.9 mg/dL (7.8-10.44); Carbon Dioxide 22 mmol/L (22-29); Chloride 105 mmol/L (98-107); Estimated GFR-MDRD Greater than 90; Glucose 214 mg/dL (70-105); Potassium 4.1 mmol/L (3.5-5.1); Sodium 134 mmol/L (136-145)
[2017-03-25] MEDS: Famotidine 20 MG TAB PO SCH ×2 (09:16→21:54)
[2017-03-25] MEDS: Insulin Detemir 100 UNITS/ML 20 UNITS in Pre-Filled Syringe SC SCH (09:16)
[2017-03-25] MEDS: Aspirin 325 MG TAB PO SCH (09:16)
[2017-03-25] MEDS: Fenofibrate Nanocrystallized 145 MG TAB PO SCH (09:16)
[2017-03-25] MEDS: Docusate 100 MG CAP PO SCH ×2 (09:16→21:55)
[2017-03-25] MEDS: Hydrocortisone 1% Cream 30 GM TUBE TOP SCH ×2 (09:17→21:56)
[2017-03-25] MEDS ORDERED: Communication Order-Pharmacy FS SCH (09:41)
[2017-03-25] MEDS ORDERED: Diazepam 5 MG TAB PO PRN (09:41)
[2017-03-25 10:53] LABS: Hemoglobin A1c 8.5 % (4.0-6.0)
--- NOTE | 2017-03-25 11:30 | PDOC.PN ---
- Subjective Encounter Start Date: 03/25/17 Encounter Start Time: 11:59 Subjective: No new complaints. No chest pain. -: No acute events overnight. - Objective Resuscitation Status: Resuscitation Status FULL:Full Resuscitation MAR Reviewed: Yes Vital Signs & Weight: Vital Signs (12 hours) Temp Pulse Resp BP BP Pulse Ox 03/25/17 08:00 98.0 F 85 18 132/83 98 03/25/17 04:00 97.9 F 80 15 102/60 100 03/25/17 00:00 98.6 F 78 14 104/59 L 96 Weight Weight 139 lb 4.8 oz I&O: 03/24/17 03/25/17 03/26/17 06:59 06:59 06:59 Intake Total 2330 750 240 Output Total 3500 800 800 Balance -1170 -50 -560 Result Diagrams: 03/25/17 04:39 03/25/17 04:39 Additional Labs: Accuchecks 03/25/17 03/24/17 03/24/17 05:55 16:45 12:32 POC Glucose 234 H 166 H 198 H Phys Exam - Physical Examination Constitutional: NAD HEENT: PERRLA, moist MMs, sclera anicteric Neck: supple, full ROM Respiratory: no wheezing, no rales, no rhonchi, clear to auscultation bilateral Cardiovascular: RRR, no significant murmur, no rub Gastrointestinal: soft, non-tender, no distention, positive bowel sounds Musculoskeletal: no edema, pulses present Neurological: non-focal, moves all 4 limbs Skin: no rash, cap refill <2 seconds Dx/Plan (1) NSTEMI (non-ST elevated myocardial infarction) Code(s): I21.4 - NON-ST ELEVATION (NSTEMI) MYOCARDIAL INFARCTION Status: Acute Comment: Stable. Chest pain free, LHC showed 3 vessel disease with mild LV dysfunction. Scheduled for CABG Continue ASA, Statins. f/u cardiology recs (2) HTN (hypertension) Code(s): I10 - ESSENTIAL (PRIMARY) HYPERTENSION Status: Acute Qualifiers: Hypertension type: essential hypertension Qualified Code(s): I10 - Essential (primary) hypertension Plan: Continue current mx Comment: At goal (3) Type 2 diabetes mellitus Status: Acute Qualifiers: Diabetes mellitus complication status: with hyperglycemia Diabetes mellitus intermediate insulin use: with superintendent container terminal use Qualified Code(s): E11.65 - Type 2 diabetes mellitus with hyperglycemia; Z79.4 - terminal computer operator (current) use of insulin; Z79.4 - terminal computer operator (current) use of insulin; Z79.4 - skilled nursing ( current) use of insulin; Z79.4 - terminal computer operator (current) use of insulin Comment: Not at goal. Increase detemir to 2 units QAM (4) HLD (hyperlipidemia) Code(s): E78.5 - HYPERLIPIDEMIA, UNSPECIFIED Status: Acute Qualifiers: Hyperlipidemia type: pure hyperglyceridemia Qualified Code(s): E78.1 - Pure hyperglyceridemia Comment: COntinue Atorvastatin and fibrates - Plan * .
[2017-03-25] MEDS: HumaLOG 300 UNITS/3 ML VIAL SC PRN ×3 (12:44→22:01)
[2017-03-25] MEDS: Atorvastatin Calcium 20 MG TAB PO SCH (21:54)
[2017-03-26] MEDS ORDERED: CEFAZOLIN/Water 2 GM/20 ML SYRINGE SLOW IVP SCH (00:30)
[2017-03-26 05:34] LABS: #Basophils 0.1 thou/uL (0.0-0.2); #Eosinphils 0.3 thou/uL (0.0-0.7); #Lymphocytes 3.2 thou/uL (1.20-3.40); #Monocytes 0.9 thou/uL (0.11-0.59); #Neutrophils 3.7 thou/uL (1.40-6.50); %Basophils 0.7 % (0.0-1.0); %Eosinophils 3.4 % (0.0-10.0); %Lymphocytes 39.9 % (21.0-51.0); Hemoglobin 13.2 g/dL (14.0-18.0); Mean Corpuscular HGB CONC 34.3 g/dL (32.0-36.0); Mean Corpuscular Hemoglobin 32.2 pg (27.0-31.0); Mean Corpuscular Volume 93.8 fl (80.0-94.0); Mean Platelet Volume 7.8 fL (7.4-10.4); Platelet Count 230 thou/uL (130-400); RBC Distribution Width 11.2 % (11.5-14.5); Red Blood Cell (RBC) Count 4.09 mill/uL (4.70-6.10); White Blood Cell (WBC) Count 8.1 thou/uL (4.8-10.8)
[2017-03-26] MEDS: Sodium Bicarbonate Tab 325 MG TAB PO SCH (05:40)
[2017-03-26] MEDS: Nitroglycerin 2% Ointment 1 INCH/1 GM Packet TOP SCH (05:40)
[2017-03-26 05:47] LABS: Anion Gap 13 mmol/L (10-20); BUN (Urea Nitrogen) 19 mg/dL (8.9-20.6); Calc. Creatinine Clearance 97 mL/min (70-130); Calcium 9.2 mg/dL (7.8-10.44); Carbon Dioxide 24 mmol/L (22-29); Chloride 104 mmol/L (98-107); Estimated GFR-MDRD Greater than 90; Glucose 221 mg/dL (70-105); Potassium 3.9 mmol/L (3.5-5.1); Sodium 137 mmol/L (136-145)
[2017-03-26] MEDS ORDERED: Heparin 10,000 UNITS/1 ML VIAL 30,000 UNITS in Sodium Chloride 0.9% 1,000 ML FS SCH (06:00)
[2017-03-26] MEDS ORDERED: Midazolam HCl 5 mg/5 ml Vial ONE (06:16)
[2017-03-26] MEDS ORDERED: Fentanyl 100 MCG/2 ML VIAL ONE ×2 (06:16→06:18)
[2017-03-26] MEDS ORDERED: Dexmedetomidine 200 MCG/2 ML VIAL ONE (06:17)
[2017-03-26] MEDS ORDERED: Vecuronium 10 MG VIAL ONE ×3 (06:17→15:30)
[2017-03-26] MEDS ORDERED: Midazolam HCl 2 mg/2 ml Vial ONE (06:41)
[2017-03-26] MEDS ORDERED: CEFAZOLIN/Water 2 GM/20 ML SYRINGE ONE (06:41)
[2017-03-26] MEDS ORDERED: Insulin Regular 300 UNITS/3 ML VIAL ONE (07:42)
[2017-03-26] MEDS ORDERED: Insulin Detemir 100 UNITS/ML 25 UNITS in Pre-Filled Syringe 1 EACH SC SCH (09:00)
[2017-03-26] MEDS ORDERED: Protamine Sulfate 50 MG/5 ML VIAL ONE (10:20)
[2017-03-26] MEDS ORDERED: DOPamine 400 MG/D5W 250 ML 250 ML IVPB PRN (11:29)
[2017-03-26] MEDS ORDERED: Nitroglycerin 50 MG/250 ML BOT 250 ML IVPB PRN (11:29)
[2017-03-26] MEDS ORDERED: Acetaminophen 325 MG TAB PO PRN (11:29)
[2017-03-26] MEDS ORDERED: HYDROcodone/Acetaminophen 5/325 mg Tablet PO PRN (11:29)
[2017-03-26] MEDS ORDERED: Mag-Al 1200 mg/1200 mg/30 ML UDCUP PO PRN (11:29)
[2017-03-26] MEDS ORDERED: Fentanyl 100 MCG/2 ML VIAL SLOW IVP PRN (11:29)
[2017-03-26] MEDS ORDERED: hydrALAZINE 20 MG/ML VIAL SLOW IVP PRN (11:29)
[2017-03-26] MEDS ORDERED: Hetastarch 6% 500 ML 500 ML IVPB PRN (11:29)
[2017-03-26] MEDS ORDERED: Bisacodyl 5 MG TAB PO PRN (11:29)
[2017-03-26] MEDS ORDERED: Guaifenesin DM 100-10/5 ML UDCUP PO PRN (11:29)
[2017-03-26] MEDS ORDERED: Bisacodyl 10 MG SUPP PR PRN (11:29)
[2017-03-26] MEDS ORDERED: Promethazine HCl 25 MG/ML VIAL IM PRN (11:29)
[2017-03-26] MEDS ORDERED: Post-Op Insulin Drip Protocol IVPB ONE (11:29)
[2017-03-26] MEDS ORDERED: Norepinephrine 8 MG/0.9% NS 250 ML IVPB PRN (11:29)
[2017-03-26] MEDS ORDERED: Ondansetron HCl/PF 4 MG/2 ML Vial IVP PRN (11:29)
[2017-03-26] MEDS ORDERED: Magnesium 2 GM/NS 0.9% 100 ML 2 GM in Premix Bag 1 BAG IVPB SCH (11:30)
[2017-03-26] MEDS ORDERED: D5 1/2 NS w/20 mEq KCL 1,000 ML IV SCH (11:30)
[2017-03-26] MEDS: Aspirin 325 MG TAB PO SCH (11:37)
[2017-03-26] MEDS: Famotidine 20 MG TAB PO SCH (11:38)
[2017-03-26] MEDS: Docusate 100 MG CAP PO SCH (11:38)
[2017-03-26] MEDS: Hydrocortisone 1% Cream 30 GM TUBE TOP SCH (11:38)
[2017-03-26] MEDS: Fenofibrate Nanocrystallized 145 MG TAB PO SCH (11:38)
[2017-03-26] MEDS ORDERED: Dextrose 50% Abboject 50 ML SYRINGE SLOW IVP PRN (12:09)
[2017-03-26] MEDS ORDERED: Dextrose 5% in Water 1,000 ML IV PRN (12:09)
[2017-03-26] MEDS ORDERED: Insulin Regular 300 UNITS/3 ML VIAL SC PRN (12:09)
[2017-03-26 12:16] LABS: #Eosinphils 0.2 thou/uL (0.0-0.7); #Lymphocytes 2.6 thou/uL (1.20-3.40); #Monocytes 1.1 thou/uL (0.11-0.59); %Basophils 0.2 % (0.0-1.0); %Eosinophils 1.5 % (0.0-10.0); %Lymphocytes 22.1 % (21.0-51.0); %Neutrophils 67.2 % (42.0-75.0); Hemoglobin 12.7 g/dL (14.0-18.0); Mean Corpuscular HGB CONC 34.2 g/dL (32.0-36.0); Mean Corpuscular Hemoglobin 32.2 pg (27.0-31.0); Mean Corpuscular Volume 94.2 fl (80.0-94.0); Mean Platelet Volume 7.5 fL (7.4-10.4); Platelet Count 189 thou/uL (130-400); RBC Distribution Width 11.4 % (11.5-14.5); Red Blood Cell (RBC) Count 3.94 mill/uL (4.70-6.10); White Blood Cell (WBC) Count 11.9 thou/uL (4.8-10.8)
[2017-03-26] MEDS: Ketorolac Tromethamine 30 MG/ML VIAL IVP SCH ×3 (12:21→23:46)
[2017-03-26 12:25] LABS: INR-International Normal Ratio 1.2; PTT 29.4 SEC (22.9-36.1); Prothrombin Time 15.4 SEC (12.0-14.7)
--- NOTE | 2017-03-26 12:36 | RAD ---
PORTABLE CHEST: History: Post op open heart surgery. Comparison: 03-21-17 FINDINGS: Endotracheal and NG tubes are in satisfactory position. Post op sternotomy changes are now seen. Righ t subclavian line is seen, catheter tip overlying the superior vena cava. Atelectatic changes are see n in the left base. IMPRESSION: 1. Post op sternotomy change. 2. Endotracheal and NG tubes in satisfactory position. POS: [facility]
--- NOTE | 2017-03-26 12:36 | OP ---
DATE OF PROCEDURE: 03/26/2017 PREOPERATIVE DIAGNOSES: Coronary artery disease/depressed left ventricular ejection fraction/hyperte nsion/hyperlipidemia/morbid obesity. POSTOPERATIVE DIAGNOSES: Coronary artery disease/depressed left ventricular ejection fraction/hypert ension/hyperlipidemia/morbid obesity. PROCEDURE: Coronary artery bypass grafting x3: 1. Left internal mammary artery to 1.5 mm LAD just distal to the stent -- good conduit and target. 2. Reverse saphenous vein to 1.5 mm ramus -- good conduit and small target. 3. Reverse saphenous vein to 2.0 mm PDA -- good conduit and target. SURGEON: Arnel Romero M.D. ANESTHESIA: General endotracheal -- Dr. Tommy Chu. PUMP TIME: 60 minutes. CROSS-CLAMP TIME: 32 minutes. LOW CORE TEMPERATURE: 32 degrees Celsius. CRISIS COUNSELOR: Ernestina Montana. DRAINS: 24-[place] chest tubes x2. DRIPS: None. TRANSFUSIONS: None. DESCRIPTION OF PROCEDURE: After consent was obtained, the patient was brought to the operating room and placed in the supine position on the operating room table. Appropriate anesthetic monitor was pl aced and general endotracheal anesthesia induced. Chest, abdomen, and legs were prepped and draped i n usual sterile fashion. Greater saphenous vein was harvested from the left lower extremity from abhi in to [place] utilizing an endoscopic technique. Wounds were then closed in layers. Median sternoto my was performed. Left internal mammary artery was harvested as a pedicle graft. The patient was sy stemically heparinized. Distal pedicle was divided and infused with papaverine. Thymic fat and lilibeth cardium were divided with electrocautery. A large pericardial fat pad was removed from overlying the pericardium. Aortic and atrial cannulation was performed. After adequate heparinization, the patie nt underwent retrograde priming and then was placed on cardiopulmonary bypass. Distal targets were m arked. Aortic cross-clamp was applied and antegrade sanguinous cardioplegic arrest obtained. One li ter of antegrade cold [place] cardioplegia was given. Topical cold solution was used. Reversed sap henous vein was anastomosed to the PDA in end-to-side fashion with running 7-0 Prolene suture. Anast omosis was tested and was hemostatic. Reversed saphenous vein was anastomosed to the ramus in end-to -side fashion with running 7-0 Prolene suture. Anastomosis was tested and was hemostatic. Mammary a rtery was brought through a window in the pericardium and anastomosed to the distal LAD just distal t o the stent with running 7-0 Prolene suture. On release of the mammary clamp, there was good hooding in the anastomosis and good distal flow. Pedicle was secured with interrupted 6-0 Prolene suture. Cross-clamp was removed and partial occluding clamp placed. Saphenous veins were anastomosed to chintan vidual punch sites with running 6-0 Prolene suture. Partial occluding clamp was removed and grafts d eaired. Anastomoses were inspected for hemostasis, which was good. The patient was warmed and weane d from cardiopulmonary bypass. After resumption of sinus rhythm, good hemodynamics, and temperature greater than 36.5, bypass was discontinued. Transfusions were given. Protamine was administered. D ecannulation was performed and pursestring sutures secured. After adequate hemostasis had been obtai gwendolyn, the sternum was treated with vancomycin paste. The sternum was closed with #7 wire, 3 in manubr ium and one at the distal sternum. Four zip ties were placed. Sternum was treated with platelet-mariana h plasma and wires twisted. Zip ties were tied and cut. Wounds were irrigated, treated with platele t-poor plasma, and closed in multiple layers. Needle, sponge, and instrument counts were all reporte d as correct at end the procedure. The patient was transferred to the intensive care unit in stable, but critical condition.
[2017-03-26 12:37] LABS: Anion Gap 11 mmol/L (10-20); BUN (Urea Nitrogen) 15 mg/dL (8.9-20.6); Calc. Creatinine Clearance 215 mL/min (70-130); Calcium 7.9 mg/dL (7.8-10.44); Carbon Dioxide 21 mmol/L (22-29); Chloride 111 mmol/L (98-107); Estimated GFR-MDRD Greater than 90; Glucose 118 mg/dL (70-105); Potassium 4.3 mmol/L (3.5-5.1); Sodium 139 mmol/L (136-145)
[2017-03-26 12:55] LABS: Actual Bicarbonate (HCO3a) 22.1 mEq/L (22-26); Base Excess (BEa) -3.9 mEq/L (0 (+/-) 2.5); CO2 Tension 43.3 mmHg (35.0-45.0); O2 Tension (PaO2) 181.5 mmHg (80.0-100.0); pH, Arterial 7.33 (7.35-7.45)
[2017-03-26 12:56] LABS: ALV-art Gradient 477.375 (0-20); Calcium, Ionized 1.1 mmol/L (1.12-1.30); Hematocrit-ABG 37.6 % (42.0-52.0); Hemoglobin (Hb) 13.4 g/dL (14.0-18.0); Puncture Site ALINE
[2017-03-26] MEDS: CEFAZOLIN/Water 2 GM/20 ML SYRINGE SLOW IVP SCH ×2 (14:22→23:47)
--- NOTE | 2017-03-26 14:57 | PDOC.PN ---
- Subjective Encounter Start Date: 03/26/17 Encounter Start Time: 14:55 Subjective: Seen after CABG x 3. NAD. Intubated but able to respond with head gestures -: No acute events overnight. - Objective Resuscitation Status: Resuscitation Status FULL:Full Resuscitation MAR Reviewed: Yes Vital Signs & Weight: Vital Signs (12 hours) Temp Pulse Resp BP BP Pulse Ox 03/26/17 14:00 16 03/26/17 13:39 98.4 F 89 18 03/26/17 12:15 94 12 96 03/26/17 12:13 90 148/68 H 03/26/17 12:00 98.4 F 03/26/17 03:55 97.8 F 75 14 113/68 95 Weight Weight 296 lb 1.6 oz Most Recent Monitor Data Heart Rate from ECG 88 NIBP 83/48 NIBP BP-Mean 66 Respiration from ECG 14 SpO2 94 I&O: 03/25/17 03/26/17 03/27/17 06:59 06:59 06:59 Intake Total 750 840 Output Total 800 2050 300 Balance -50 -1210 -300 Result Diagrams: 03/26/17 12:06 03/26/17 12:06 Additional Labs: Accuchecks 03/26/17 03/26/17 03/26/17 14:15 12:55 12:03 POC Glucose 156 H 163 H 110 03/26/17 03/26/17 03/26/17 11:40 11:22 10:47 POC Glucose 111 H 126 H 145 H 03/26/17 03/26/17 03/26/17 09:53 09:09 07:43 POC Glucose 186 H 198 H 242 H 03/26/17 03/25/17 03/25/17 05:46 21:08 16:47 POC Glucose 223 H 257 H 250 H Phys Exam - Physical Examination Constitutional: NAD HEENT: PERRLA, moist MMs, sclera anicteric Neck: no JVD, supple Respiratory: no wheezing, no rales, no rhonchi, clear to auscultation bilateral Cardiovascular: RRR, no significant murmur, no rub Gastrointestinal: soft, non-tender, no distention, positive bowel sounds Musculoskeletal: no edema, pulses present Neurological: non-focal Intubated Dx/Plan (1) NSTEMI (non-ST elevated myocardial infarction) Code(s): I21.4 - NON-ST ELEVATION (NSTEMI) MYOCARDIAL INFARCTION Status: Acute Comment: Stable. LHC showed 3 vessel disease with mild LV dysfunction. s/p CABG 2/ Continue current management f/u cardiology recs (2) S/P CABG x 3 Code(s): Z95.1 - PRESENCE OF AORTOCORONARY BYPASS GRAFT Status: Acute Comment: As above. (3) Hypotension Status: Acute Qualifiers: Hypotension type: other hypotension type Qualified Code(s): I95.89 - Other hypotension Comment: post op. Started on Levophed. Monitor in ICU A line in place. keep MAP >= 65 (4) HTN (hypertension) Code(s): I10 - ESSENTIAL (PRIMARY) HYPERTENSION Status: Acute Qualifiers: Hypertension type: essential hypertension Qualified Code(s): I10 - Essential (primary) hypertension Comment: At goal (5) Type 2 diabetes mellitus Status: Acute Qualifiers: Diabetes mellitus complication status: with hyperglycemia Diabetes mellitus manager long term care insulin use: with usp use Qualified Code(s): E11.65 - Type 2 diabetes mellitus with hyperglycemia; Z79.4 - [facility] (current) use of insulin; Z79.4 - care home (current) use of insulin; Z79.4 - care home ( current) use of insulin; Z79.4 - care home (current) use of insulin Comment: Not at goal. Continue detemir, SSI (6) HLD (hyperlipidemia) Code(s): E78.5 - HYPERLIPIDEMIA, UNSPECIFIED Status: Acute Qualifiers: Hyperlipidemia type: pure hyperglyceridemia Qualified Code(s): E78.1 - Pure hyperglyceridemia Comment: COntinue Atorvastatin and fibrates - Plan cont current plan of care, plan discussed w/ family * .
[2017-03-26] MEDS ORDERED: DOPamine 400 MG/10 ML VIAL ONE (15:30)
[2017-03-26] MEDS ORDERED: Calcium Chloride 1 GM/10 ML Abboject SYRINGE ONE (15:30)
[2017-03-26] MEDS ORDERED: Nitroglycerin 50 MG/250 ML BOT ONE (15:30)
[2017-03-26] MEDS ORDERED: Heparin 30,000 units/30 ml VIAL ONE (15:30)
[2017-03-26] MEDS ORDERED: Thrombin 5000 UNITS/5 ML VIAL ONE (15:30)
[2017-03-26] MEDS ORDERED: Cardioplegic Soln 1,000 ML BAG ONE (15:30)
[2017-03-26] MEDS ORDERED: Aminocaproic Acid 5 GM/20 ML VIAL ONE (15:30)
[2017-03-26] MEDS ORDERED: Potassium Chloride 60 MEQ/30 ML VIAL ONE (15:30)
[2017-03-26] MEDS ORDERED: Protamine Sulfate 250 MG/25 ML VIAL ONE (15:30)
[2017-03-26] MEDS ORDERED: Lidocaine 2% PF 100 mg/5 ml Syringe ONE (15:30)
[2017-03-26] MEDS ORDERED: Sodium Bicarb 50 MEQ/50 ML VIAL ONE (15:30)
[2017-03-26] MEDS ORDERED: Propofol 200 MG/20 ML VIAL ONE (15:30)
[2017-03-26] MEDS ORDERED: Magnesium 5 GM/10 ML VIAL ONE (15:30)
[2017-03-26] MEDS ORDERED: Heparin 5,000 UNITS/ML VIAL ONE (15:30)
[2017-03-26] MEDS ORDERED: Papaverine 60 MG/2 ML VIAL ONE (15:30)
[2017-03-26] MEDS ORDERED: Lidocaine 1% PF 5 ML VIAL ONE (15:30)
[2017-03-26 17:25] LABS: Hemoglobin 11.4 g/dL (14.0-18.0)
[2017-03-26 17:40] LABS: Potassium 3.8 mmol/L (3.5-5.1)
[2017-03-26] MEDS: Fentanyl 100 MCG/2 ML VIAL SLOW IVP PRN ×3 (17:49→23:52)
[2017-03-26] MEDS: Potassium Chloride 20 MEQ/100 ML PREMIX BAG IVPB PRN (18:43)
[2017-03-26] MEDS: HYDROcodone/Acetaminophen 5/325 mg Tablet PO PRN (20:35)
[2017-03-26] MEDS ORDERED: Famotidine/PF 20 mg/2ml Vial SLOW IVP SCH (21:00)
--- NOTE | 2017-03-26 21:07 | EKG ---
Test Reason : POST CABG Blood Pressure : / mmHG Vent. Rate : 078 BPM Atrial Rate : 078 BPM P-R Int : 136 ms QRS Dur : 106 ms QT Int : 398 ms P-R-T Axes : 047 029 075 degrees QTc Int : 453 ms Electronic atrial pacemaker Abnormal ECG When compared with ECG of 22-MAR-2017 20:17, (Unconfirmed) Electronic atrial pacemaker has replaced Sinus rhythm Nonspecific T wave abnormality now evident in Inferior leads T wave inversion more evident in Anterior leads Confirmed by NILTON PADILLA ([id number]) on 03/26/2017 9:06:59 PM Referred By: Pricila LEUNG Confirmed By:NILTON PADILLA
[2017-03-27] MEDS: HYDROcodone/Acetaminophen 5/325 mg Tablet PO PRN ×4 (03:15→21:15)
[2017-03-27 04:20] LABS: #Eosinphils 0.2 thou/uL (0.0-0.7); #Lymphocytes 1.6 thou/uL (1.20-3.40); #Monocytes 1.1 thou/uL (0.11-0.59); #Neutrophils 5.1 thou/uL (1.40-6.50); %Basophils 0.1 % (0.0-1.0); %Lymphocytes 19.7 % (21.0-51.0); %Monocytes 13.5 % (0.0-10.0); %Neutrophils 64.7 % (42.0-75.0); Hemoglobin 11.3 g/dL (14.0-18.0); Mean Corpuscular HGB CONC 34.3 g/dL (32.0-36.0); Mean Corpuscular Hemoglobin 32.5 pg (27.0-31.0); Mean Corpuscular Volume 94.9 fl (80.0-94.0); Mean Platelet Volume 7.9 fL (7.4-10.4); Platelet Count 189 thou/uL (130-400); RBC Distribution Width 11.6 % (11.5-14.5); Red Blood Cell (RBC) Count 3.47 mill/uL (4.70-6.10); White Blood Cell (WBC) Count 7.9 thou/uL (4.8-10.8)
[2017-03-27 04:31] LABS: Anion Gap 10 mmol/L (10-20); BUN (Urea Nitrogen) 10 mg/dL (8.9-20.6); Calc. Creatinine Clearance 235 mL/min (70-130); Calcium 7.8 mg/dL (7.8-10.44); Carbon Dioxide 23 mmol/L (22-29); Chloride 111 mmol/L (98-107); Estimated GFR-MDRD Greater than 90; Glucose 119 mg/dL (70-105); Potassium 3.7 mmol/L (3.5-5.1); Sodium 140 mmol/L (136-145)
[2017-03-27] MEDS: Ketorolac Tromethamine 30 MG/ML VIAL IVP SCH ×4 (05:00→23:33)
[2017-03-27] MEDS: Potassium Chloride 20 MEQ/100 ML PREMIX BAG IVPB PRN (05:51)
[2017-03-27] MEDS: CEFAZOLIN/Water 2 GM/20 ML SYRINGE SLOW IVP SCH (06:01)
[2017-03-27] MEDS ORDERED: Insulin Detemir 100 UNITS/ML 21 UNITS in Pre-Filled Syringe 1 EACH SC SCH (07:15)
[2017-03-27] MEDS ORDERED: Acetaminophen 325 MG TAB PO PRN (07:20)
[2017-03-27] MEDS ORDERED: Nitroglycerin 0.4 MG TAB 1 EACH SL PRN (07:20)
[2017-03-27] MEDS ORDERED: Artificial Tears 18 DROP/0.9 ML EA EYE PRN (07:20)
[2017-03-27] MEDS ORDERED: Ondansetron HCl/PF 4 MG/2 ML Vial IVP PRN (07:20)
[2017-03-27] MEDS ORDERED: Milk Of Magnesia 30 ML UDCUP PO PRN (07:20)
[2017-03-27] MEDS ORDERED: Bisacodyl 10 MG SUPP PR PRN (07:20)
[2017-03-27] MEDS ORDERED: Mag-Al 1200 mg/1200 mg/30 ML UDCUP PO PRN (07:20)
[2017-03-27] MEDS ORDERED: Mineral Oil ENEMA PR PRN (07:20)
[2017-03-27] MEDS ORDERED: Zolpidem Tartrate 5 MG TAB PO PRN (07:20)
[2017-03-27] MEDS ORDERED: Fentanyl 100 MCG/2 ML VIAL SLOW IVP PRN (07:20)
[2017-03-27] MEDS ORDERED: diphenhydrAMINE 25 MG CAP PO PRN (07:20)
[2017-03-27] MEDS ORDERED: Guaifenesin DM 100-10/5 ML UDCUP PO PRN (07:20)
[2017-03-27] MEDS ORDERED: HYDROcodone/Acetaminophen 5/325 mg Tablet PO PRN (07:20)
[2017-03-27] MEDS ORDERED: Dextrose 5% in Water 1,000 ML IV PRN (08:00)
[2017-03-27] MEDS ORDERED: Potassium Chloride 10 MEQ TAB PO SCH (08:00)
[2017-03-27] MEDS ORDERED: Dextrose 50% Abboject 50 ML SYRINGE SLOW IVP PRN (08:00)
[2017-03-27] MEDS: Aspirin 325 mg Enteric Coated Tablet PO SCH (08:30)
[2017-03-27] MEDS: Famotidine 20 MG TAB PO SCH ×2 (08:31→21:16)
[2017-03-27] MEDS: Metoprolol Tartrate 25 MG TAB PO SCH ×2 (08:32→21:16)
[2017-03-27] MEDS: Magnesium 2 GM/NS 0.9% 100 ML 2 GM in Premix Bag 1 BAG IVPB SCH (08:32)
--- NOTE | 2017-03-27 08:56 | RAD ---
PORTABLE CHEST: DATE: 03/27/17. [facility] CLINICAL HISTORY: Post open heart. FINDINGS: Comparison is made with the study dated 03/26/17. Interval removal of enteric catheter and endotrachea l tube. Additional significant interval change with respect to the prior examination is not definite ly apparent. Partial silhouetting of the medial left hemidiaphragm could reflect left basilar volume loss, although this is not completely certain. IMPRESSION: Silhouetting of the left hemidiaphragm medially may reflect volume loss. Consider correlating with a lateral view. POS: OFF
[2017-03-27] MEDS ORDERED: Magnesium 2 GM/NS 0.9% 100 ML 2 GM in Premix Bag 1 BAG IVPB SCH (09:00)
[2017-03-27] MEDS ORDERED: Furosemide 40 MG TAB PO SCH (09:00)
[2017-03-27] MEDS ORDERED: Aspirin 325 MG TAB PO SCH (09:00)
--- NOTE | 2017-03-27 09:57 | PDOC.PN ---
- Subjective Encounter Start Date: 03/27/17 Encounter Start Time: 09:55 Subjective: No new complaints. had CABG yesterday, tubes taken out and he is ambulating -: No acute events overnight - Objective Resuscitation Status: Resuscitation Status FULL:Full Resuscitation MAR Reviewed: Yes Vital Signs & Weight: Vital Signs (12 hours) Temp Pulse Resp Pulse Ox 03/27/17 08:00 98.4 F 96 20 03/27/17 06:38 96 03/27/17 06:33 109 H 23 H 96 03/27/17 03:00 99.0 F 03/27/17 00:25 102 H 14 95 03/26/17 23:00 98.3 F Weight Weight 311 lb 4.683 oz Most Recent Monitor Data Heart Rate from ECG 97 NIBP 155/83 NIBP BP-Mean 102 Respiration from ECG 19 SpO2 95 I&O: 03/26/17 03/27/17 03/28/17 06:59 06:59 06:59 Intake Total 840 1857.5 300 Output Total 2050 1710 Balance -1210 147.5 300 Result Diagrams: 03/27/17 04:00 03/27/17 04:00 Additional Labs: Accuchecks 03/27/17 03/27/17 03/27/17 07:13 05:55 05:01 POC Glucose 170 H 151 H 137 H 03/27/17 03/27/17 03/27/17 03:49 03:10 02:04 POC Glucose 118 H 87 104 03/27/17 03/26/17 03/26/17 00:52 23:51 22:54 POC Glucose 122 H 106 135 H 03/26/17 03/26/17 03/26/17 22:02 20:54 20:05 POC Glucose 138 H 114 H 110 03/26/17 03/26/17 03/26/17 18:02 17:13 16:17 POC Glucose 146 H 166 H 168 H 03/26/17 03/26/17 03/26/17 15:09 14:15 12:55 POC Glucose 174 H 156 H 163 H 03/26/17 03/26/17 03/26/17 12:03 11:40 11:22 POC Glucose 110 111 H 126 H 03/26/17 03/26/17 10:47 09:53 POC Glucose 145 H 186 H Phys Exam - Physical Examination Constitutional: NAD HEENT: PERRLA, moist MMs, sclera anicteric Neck: no JVD, supple, full ROM Respiratory: no wheezing, no rales, no rhonchi, clear to auscultation bilateral Cardiovascular: RRR, no significant murmur, no rub Gastrointestinal: soft, non-tender, no distention, positive bowel sounds Musculoskeletal: no edema, pulses present Neurological: non-focal, moves all 4 limbs Psychiatric: normal affect, A&O x 3 Skin: no rash, normal turgor Dx/Plan (1) NSTEMI (non-ST elevated myocardial infarction) Code(s): I21.4 - NON-ST ELEVATION (NSTEMI) MYOCARDIAL INFARCTION Status: Acute Comment: Stable. LHC showed 3 vessel disease with mild LV dysfunction. s/p CABG / (2) S/P CABG x 3 Code(s): Z95.1 - PRESENCE OF AORTOCORONARY BYPASS GRAFT Status: Acute Comment: As above. Tubes removed and patient has been gently ambulating. (3) Hypotension Status: Resolved Qualifiers: Hypotension type: other hypotension type Qualified Code(s): I95.89 - Other hypotension (4) HTN (hypertension) Code(s): I10 - ESSENTIAL (PRIMARY) HYPERTENSION Status: Acute Qualifiers: Hypertension type: essential hypertension Qualified Code(s): I10 - Essential (primary) hypertension Comment: At goal (5) Type 2 diabetes mellitus Status: Acute Qualifiers: Diabetes mellitus complication status: with hyperglycemia Diabetes mellitus terminal carman insulin use: with terminal carman use Qualified Code(s): E11.65 - Type 2 diabetes mellitus with hyperglycemia; Z79.4 - rn long term care (current) use of insulin; Z79.4 - rn long term care (current) use of insulin; Z79.4 - rn long term care ( current) use of insulin; Z79.4 - senior care (current) use of insulin Comment: Well controlled. Continue insulin (6) HLD (hyperlipidemia) Code(s): E78.5 - HYPERLIPIDEMIA, UNSPECIFIED Status: Acute Qualifiers: Hyperlipidemia type: pure hyperglyceridemia Qualified Code(s): E78.1 - Pure hyperglyceridemia Comment: on Atorvastatin - Plan cont current plan of care, plan discussed w/ family * .
[2017-03-27] MEDS ORDERED: ALPRAZolam 0.5 MG TAB PO SCH ×2 (10:21→10:30)
[2017-03-27] MEDS: Insulin Regular 300 UNITS/3 ML VIAL SC PRN ×3 (11:16→21:20)
--- NOTE | 2017-03-27 12:23 | CON ---
DATE OF CONSULTATION: 03/27/2017 SERVICE: Pulmonary Medicine. REASON FOR CONSULTATION: ICU patient. HISTORY OF PRESENT ILLNESS: The patient is a 46-year-old white male with past medical history significant for type 2 diabetes mellitus, who presented to the hospital on 03/21/2017 with chest discomfort. Ultimately, he was found to have 3-vessel disease. He underwent coronary bypass graft x3 vessels yesterday. He is currently recovering from that. Right after that procedure, he had persistent hypoxemia. This was mostly because of atelectasis of the lungs. Once this resolved, he extubated comfortably. Overnight, he has been a little resistant to moving, but this morning, we were able to get him out of bed into a chair. He currently denies any fevers, chills, nausea or vomiting. He is coughing. He tolerating p.o. He had a couple of bowel movements yesterday, but since then, he has not had anything but his bowels are working. There have been no significant overnight events otherwise. PAST MEDICAL HISTORY: 1. Hypertension. 2. Dyslipidemia. 3. Type 2 diabetes mellitus. 4. Coronary artery disease. PAST SURGICAL HISTORY: 1. Pacemaker placement. 2. Percutaneous coronary intervention. 3. Coronary artery bypass graft x3 vessels. 4. Herniorrhaphy. 5. Left ACL surgery. SOCIAL HISTORY: Negative for alcohol, tobacco or illicit drug use currently. He has got a greater than a [id number] history of smoking, but quit over roughly 10 months ago. He has no exposure to chemicals, dusts, asbestosis, or tuberculosis. FAMILY HISTORY: Noncontributory. ALLERGIES: No known drug allergies. MEDICATIONS: List of inpatient medications were reviewed. No specific updates were made at this time. REVIEW OF SYSTEMS: General, head, ears, eyes, nose, throat, cardiovascular, respiratory, GI, , musculoskeletal, neurologic and skin is negative except as mentioned in the HPI. PHYSICAL EXAMINATION: VITAL SIGNS: Afebrile, pulse 97, blood pressure 155/83, respirations 19, saturation 95% on 1 liter nasal cannula. GENERAL: The patient is awake and alert. He is in no apparent distress. LUNGS: Decent air entry. Rhonchi are present but clear with cough. There are some dependent crackles. There is no prolonged expiratory phase or wheezing. HEART: Normal rate, regular. ABDOMEN: Soft. Distended. Nontender. There is no rebound or guarding. Bowel sounds are present. MUSCULOSKELETAL: No cyanosis or clubbing. There is trace pitting in the bilateral lower extremities. NEUROLOGIC: Nonfocal. : Bhandari catheter in place. LABORATORY DATA: WBC 7.9, hemoglobin 11.3, platelets 189,000. A pH 7.33, pCO2 43, pO2 181. Basic metabolic profile is otherwise unremarkable. Liver function studies were previously unremarkable. Cardiac enzymes went all the way up to 5.5, but started trending downward the next day. IMAGING: Chest x-ray demonstrates interval extubation. Sternotomy wires are present. No acute cardiopulmonary abnormalities otherwise identified. There is probably a plate of atelectasis in the left lung. Right subclavian central venous catheter terminates in decent position. ASSESSMENT: 1. Acute hypoxic respiratory failure. 2. Non-ST elevation myocardial infarction. 3. Coronary artery disease, status post coronary artery bypass graft x3 vessels , postoperative day #1. 4. Type 2 diabetes mellitus. PLAN: The patient is doing outstanding from a cardiovascular and respiratory standpoint. Pulmonary will continue to follow for the time being. He has been initiated on diuretics which are appropriate because he is little volume overloaded. He is stable for transition out of the ICU to the telemetry unit. 70 minutes have been devoted to this patient in various activities. I personally reviewed all imaging studies and laboratory data noted within this document. For at least half of this time, I was interacting with the patient at the bedside or coordinating care with the care team. For the remainder of the time I was immediately available to the patient in the hospital unit. NICKIE
[2017-03-27] MEDS: ALPRAZolam 0.5 MG TAB PO SCH (21:15)
[2017-03-28] MEDS: Bisacodyl 5 MG TAB PO PRN ×2 (05:33→21:12)
[2017-03-28] MEDS: Ketorolac Tromethamine 30 MG/ML VIAL IVP SCH ×3 (05:33→17:55)
[2017-03-28] MEDS: Insulin Regular 300 UNITS/3 ML VIAL SC PRN ×3 (05:34→17:57)
[2017-03-28] MEDS: Carvedilol 3.125 MG TAB PO SCH ×2 (08:33→17:55)
[2017-03-28] MEDS: Potassium Chloride 10 MEQ TAB PO SCH (08:33)
[2017-03-28] MEDS: ALPRAZolam 0.5 MG TAB PO SCH ×2 (08:34→21:03)
[2017-03-28] MEDS: Famotidine 20 MG TAB PO SCH ×2 (08:34→21:02)
[2017-03-28] MEDS: Aspirin 325 mg Enteric Coated Tablet PO SCH (08:34)
[2017-03-28] MEDS: Magnesium 2 GM/NS 0.9% 100 ML 2 GM in Premix Bag 1 BAG IVPB SCH (08:35)
[2017-03-28] MEDS: Furosemide 40 MG TAB PO SCH ×2 (08:35→14:07)
--- NOTE | 2017-03-28 09:27 | PRG ---
DATE OF SERVICE: 03/28/2017 SERVICE: Pulmonary Medicine. INTERVAL HISTORY: The patient is doing great from a respiratory standpoint. He is breathing comfort ably on room air. He denies any current chest pain, nausea, vomiting or shortness of breath. He is able to walk with physical therapy yesterday. Otherwise, he is simply returning to his usual state o f health. He has no specific complaints. There were no overnight events. PHYSICAL EXAMINATION: VITAL SIGNS: Afebrile, pulse 100, blood pressure 166/71, respirations 20, saturation 100% on room ai r. GENERAL: The patient is awake, alert, in no apparent distress. LUNGS: Excellent air entry. There is no prolonged expiratory phase, wheezing, rhonchi, or crackles present. HEART: Normal rate, regular. ABDOMEN: Soft, nontender, and nondistended. Bowel sounds are positive. MUSCULOSKELETAL: No cyanosis or clubbing. There is 1+ pitting in the right lower extremity and trac e pitting in the left lower extremity. GENITOURINARY: No Bhandari. NEUROLOGIC: Grossly nonfocal. LABORATORY DATA: WBC 7.9, hemoglobin 11.3, platelets 189,000. INR 1.2. PH 7.33, pCO2 43, and pO2 1 81. Blood sugars ranged from 151-230. ASSESSMENT: 1. Acute hypoxic respiratory failure, resolved. 2. Non-ST elevation myocardial infarction. 3. Coronary artery disease, status post coronary artery bypass graft x3 vessels, postop day #2. 4. Type 2 diabetes mellitus. DISCUSSION AND PLAN: The patient is doing fantastic from a cardiovascular and respiratory standpoint . He is stable for transition out of the ICU to the telemetry floor. When he makes it to the floor, Pulmonary will sign off. Please call with additional questions or concerns moving forward.
[2017-03-28] MEDS: HYDROcodone/Acetaminophen 5/325 mg Tablet PO PRN (09:49)
--- NOTE | 2017-03-28 09:49 | PDOC.PN ---
- Subjective Encounter Start Date: 03/28/17 Encounter Start Time: 09:55 Subjective: Feels better today. no complaints. -: No acute overnight events. - Objective Resuscitation Status: Resuscitation Status FULL:Full Resuscitation MAR Reviewed: Yes Vital Signs & Weight: Vital Signs (12 hours) Temp Pulse Resp Pulse Ox 03/28/17 08:00 98.7 F 100 20 100 03/28/17 06:30 96 03/28/17 04:00 99.0 F 03/28/17 00:00 98.9 F Weight Weight 315 lb 4.176 oz Most Recent Monitor Data Heart Rate from ECG 100 NIBP 166/71 NIBP BP-Mean 96 Respiration from ECG 20 SpO2 100 I&O: 03/27/17 03/28/17 03/29/17 06:59 06:59 06:59 Intake Total 1857.5 1072 320 Output Total 1710 800 1 Balance 147.5 272 319 Result Diagrams: 03/27/17 04:00 03/27/17 04:00 Additional Labs: Accuchecks 03/28/17 03/27/17 03/27/17 05:33 21:21 17:25 POC Glucose 168 H 229 H 200 H 03/27/17 11:16 POC Glucose 230 H Phys Exam - Physical Examination Constitutional: NAD HEENT: PERRLA, moist MMs, sclera anicteric Neck: supple, full ROM Respiratory: no wheezing, no rales, no rhonchi Cardiovascular: RRR, no significant murmur, no rub Gastrointestinal: soft, non-tender, no distention, positive bowel sounds Musculoskeletal: pulses present, edema present (trace) Neurological: non-focal, moves all 4 limbs Psychiatric: normal affect, A&O x 3 Skin: no rash Dx/Plan (1) NSTEMI (non-ST elevated myocardial infarction) Code(s): I21.4 - NON-ST ELEVATION (NSTEMI) MYOCARDIAL INFARCTION Status: Acute Plan: f/u cardiology recs. Comment: Stable. Doing well post op. LHC showed 3 vessel disease with mild LV dysfunction. s/p CABG 2/ (2) S/P CABG x 3 Code(s): Z95.1 - PRESENCE OF AORTOCORONARY BYPASS GRAFT Status: Acute Comment: As above. (3) HTN (hypertension) Code(s): I10 - ESSENTIAL (PRIMARY) HYPERTENSION Status: Acute Qualifiers: Hypertension type: essential hypertension Qualified Code(s): I10 - Essential (primary) hypertension Comment: At goal (4) Type 2 diabetes mellitus Status: Acute Qualifiers: Diabetes mellitus complication status: with hyperglycemia Diabetes mellitus termite helper insulin use: with termite helper use Qualified Code(s): E11.65 - Type 2 diabetes mellitus with hyperglycemia; Z79.4 - [facility] (current) use of insulin; Z79.4 - [facility] (current) use of insulin; Z79.4 - [facility] ( current) use of insulin; Z79.4 - local intermodal truck driver (current) use of insulin Comment: Fair control Continue insulin (5) HLD (hyperlipidemia) Code(s): E78.5 - HYPERLIPIDEMIA, UNSPECIFIED Status: Acute Qualifiers: Hyperlipidemia type: pure hyperglyceridemia Qualified Code(s): E78.1 - Pure hyperglyceridemia Comment: on Atorvastatin - Plan cont current plan of care, plan discussed w/ family * .
[2017-03-28] MEDS: Atorvastatin Calcium 20 MG TAB PO SCH (21:03)
[2017-03-29] MEDS: Ketorolac Tromethamine 30 MG/ML VIAL IVP SCH ×3 (00:26→11:42)
[2017-03-29 08:03] LABS: Hemoglobin 10.3 g/dL (14.0-18.0); Mean Corpuscular HGB CONC 33.3 g/dL (32.0-36.0); Mean Corpuscular Hemoglobin 32.7 pg (27.0-31.0); Mean Corpuscular Volume 97.9 fl (80.0-94.0); Platelet Count 205 thou/uL (130-400); RBC Distribution Width 11.5 % (11.5-14.5); Red Blood Cell (RBC) Count 3.16 mill/uL (4.70-6.10); White Blood Cell (WBC) Count 7.8 thou/uL (4.8-10.8)
[2017-03-29] MEDS: Aspirin 325 mg Enteric Coated Tablet PO SCH (08:07)
[2017-03-29] MEDS: Potassium Chloride 10 MEQ TAB PO SCH (08:07)
[2017-03-29] MEDS: Carvedilol 3.125 MG TAB PO SCH ×2 (08:07→16:05)
[2017-03-29] MEDS: Famotidine 20 MG TAB PO SCH ×2 (08:07→22:08)
[2017-03-29] MEDS: Insulin Regular 300 UNITS/3 ML VIAL SC PRN ×3 (08:07→17:20)
[2017-03-29] MEDS: ALPRAZolam 0.5 MG TAB PO SCH ×2 (08:07→22:08)
[2017-03-29] MEDS: Furosemide 40 MG TAB PO SCH ×2 (08:07→14:47)
[2017-03-29 08:22] LABS: Anion Gap 8 mmol/L (10-20); BUN (Urea Nitrogen) 17 mg/dL (8.9-20.6); Calc. Creatinine Clearance 237 mL/min (70-130); Calcium 8.6 mg/dL (7.8-10.44); Carbon Dioxide 25 mmol/L (22-29); Chloride 108 mmol/L (98-107); Estimated GFR-MDRD Greater than 90; Glucose 203 mg/dL (70-105); Potassium 4.2 mmol/L (3.5-5.1); Sodium 137 mmol/L (136-145)
--- NOTE | 2017-03-29 11:28 | PDOC.PN ---
- Subjective Encounter Start Date: 03/29/17 Encounter Start Time: 11:28 Subjective: No acute events -: No complaints today. No chest pain but pain around surgical site. - Objective Resuscitation Status: Resuscitation Status FULL:Full Resuscitation MAR Reviewed: Yes Vital Signs & Weight: Vital Signs (12 hours) Temp Pulse Resp BP BP Pulse Ox 03/29/17 07:33 98.5 F 87 16 95 03/29/17 07:15 98.5 F 87 16 113/61 95 03/29/17 03:35 99.1 F 84 16 105/57 L 93 L Weight Weight 318 lb 6.4 oz Most Recent Monitor Data Heart Rate from ECG 91 NIBP 133/79 NIBP BP-Mean 98 Respiration from ECG 23 SpO2 99 I&O: 03/28/17 03/29/17 03/30/17 06:59 06:59 06:59 Intake Total 1072 790 Output Total 800 2301 Balance 272 -1511 Result Diagrams: 03/29/17 05:37 03/29/17 05:37 Additional Labs: Accuchecks 03/29/17 03/28/17 03/28/17 05:55 17:39 11:51 POC Glucose 226 H 254 H 248 H Phys Exam - Physical Examination Constitutional: NAD HEENT: PERRLA, moist MMs, sclera anicteric Neck: no JVD, supple, full ROM Respiratory: no wheezing, no rales, no rhonchi Cardiovascular: RRR, no significant murmur, no rub Sternotomy scar w tad Gastrointestinal: soft, non-tender, no distention, positive bowel sounds Musculoskeletal: no edema, pulses present Neurological: non-focal, moves all 4 limbs Psychiatric: normal affect, A&O x 3 Skin: no rash, normal turgor Dx/Plan (1) NSTEMI (non-ST elevated myocardial infarction) Code(s): I21.4 - NON-ST ELEVATION (NSTEMI) MYOCARDIAL INFARCTION Status: Acute Comment: Stable. Chest pain free. LHC showed 3 vessel disease with mild LV dysfunction, subsequently had CABG 2/7 Continue ASA, Coreg, Statin, Lasix. (2) S/P CABG x 3 Code(s): Z95.1 - PRESENCE OF AORTOCORONARY BYPASS GRAFT Status: Acute Plan: Continue current medications. Comment: As above. (3) HTN (hypertension) Code(s): I10 - ESSENTIAL (PRIMARY) HYPERTENSION Status: Acute Qualifiers: Hypertension type: essential hypertension Qualified Code(s): I10 - Essential (primary) hypertension Plan: Continue current medications. Comment: At goal (4) Type 2 diabetes mellitus Status: Acute Qualifiers: Diabetes mellitus complication status: with hyperglycemia Diabetes mellitus laborer marine terminal insulin use: with intermediate use Qualified Code(s): E11.65 - Type 2 diabetes mellitus with hyperglycemia; Z79.4 - skilled nursing (current) use of insulin; Z79.4 - terminal supervisor (current) use of insulin; Z79.4 - skilled nursing ( current) use of insulin; Z79.4 - skilled nursing (current) use of insulin Plan: Continue current medications. Comment: Fair control Continue insulin (5) HLD (hyperlipidemia) Code(s): E78.5 - HYPERLIPIDEMIA, UNSPECIFIED Status: Acute Qualifiers: Hyperlipidemia type: pure hyperglyceridemia Qualified Code(s): E78.1 - Pure hyperglyceridemia Plan: Continue current medications. Comment: on Atorvastatin - Plan cont current plan of care, plan discussed w/ family Home after cardiology clearance. * .
--- NOTE | 2017-03-29 16:47 | PDOC.CTH ---
Cardiology Progress Note - Subjective He is doing very well. He has been walking with PT and feels fantastic. He had a BM today. - Objective Vital Signs Temp Pulse Pulse Pulse Resp BP BP 03/29/17 12:31 91 90 134/68 107/56 L 03/29/17 11:00 98.5 F 87 20 03/29/17 07:33 98.5 F 87 16 03/29/17 07:15 98.5 F 87 16 BP Pulse Ox Pulse Ox Pulse Ox 03/29/17 12:31 97 92 L 03/29/17 11:00 119/64 97 03/29/17 07:33 95 03/29/17 07:15 113/61 95 Weight 318 lb 6.4 oz 03/28/17 03/29/17 03/30/17 06:59 06:59 06:59 Intake Total 1072 790 Output Total 800 2301 Balance 272 -1511 - Physical Examination General/Neuro: alert & oriented x3, NAD Neck: no JVD present Lungs: unlabored respirations Heart: RRR Abdomen: NT/ND Extremities: + edema B (1+) - Telemetry Telemetry Rhythm: NSR - Labs Result Diagrams: 03/29/17 05:37 03/29/17 05:37 Troponin/CKMB CK-MB (CK-2) 6.1 ng/mL (0-6.6) 03/21/17 11:07 Troponin I 2.325 ng/mL (< 0.028) H* 03/22/17 13:04 - Assessment/Plan 1. NSTEMI 2. s/p CABG 3. S/P AICD in the past. PLAN: - Continue Aspirin and statin for life. - Continue BB - ACEI once BP allows.
[2017-03-29] MEDS ORDERED: Insulin Detemir 100 UNITS/ML 20 UNITS in Pre-Filled Syringe 1 EACH SC SCH (21:00)
[2017-03-29] MEDS: Atorvastatin Calcium 20 MG TAB PO SCH (22:08)
[2017-03-30] MEDS: HYDROcodone/Acetaminophen 5/325 mg Tablet PO PRN (03:04)
[2017-03-30] MEDS ORDERED: Carvedilol 3.125 MG TAB PO SCH (08:00)
[2017-03-30] MEDS: Aspirin 325 mg Enteric Coated Tablet PO SCH (10:05)
[2017-03-30] MEDS: ALPRAZolam 0.5 MG TAB PO SCH (10:05)
[2017-03-30] MEDS: Famotidine 20 MG TAB PO SCH (10:06)
[2017-03-30] MEDS: Potassium Chloride 10 MEQ TAB PO SCH (10:06)
[2017-03-30] MEDS: Furosemide 40 MG TAB PO SCH (10:06)
[2017-03-30 10:21] VITALS: BP 127/68; TEMP 98.9
--- NOTE | 2017-03-31 02:21 | DIS ---
DATE OF ADMISSION: 03/21/2017 DATE OF DISCHARGE: 03/30/2017 DISCHARGE DIAGNOSES: Non-ST elevation myocardial infarction, coronary artery disease status post coronary artery bypass grafting, hypertension, hyperlipidemia, hypertriglyceridemia, type 2 diabetes mellitus. HISTORY PRESENT ILLNESS: A 46-year-old male with diabetes and history of classic angina and previously placed the defibrillator and stent 10 years ago, presented to the emergency room with chest pressure/tightness, which has been for the past 6 months, but around 5:30 a.m. the morning of presentation develops severe squeezing chest pain radiating to his back and jaw associated with shortness of breath and dizziness lasted 4-5 hours and due to the change in his usual chest pain, he decided to come to the emergency room. At the ER, he was found to have elevated troponin, but EKG was unremarkable, was admitted for NSTEMI. He underwent a left heart catheterization, which showed 3-vessel disease and mild LV dysfunction. He was subsequently taken for CABG on 03/26. He was placed on aspirin, Coreg, statin, and Lasix. He was followed by Cardiology throughout his stay and deemed stable for discharge on 03/30/2017. He is to follow up with his software developer consultant after discharge and to present for cardiac rehabilitation. DISCHARGE MEDICATIONS: Alprazolam 0.5 mg b.i.d., aspirin 325 mg daily, atorvastatin 20 mg at bedtime, carvedilol 6.25 mg b.i.d. with meals, fenofibrate 145 mg daily, furosemide 40 mg daily, hydrocodone 1-2 tabs p.o. q.6 hours p.r.n. for pain, insulin glargine 100 units subcutaneous q.a.m., isosorbide mononitrate 120 mg at bedtime, niacin 1000 mg at bedtime, potassium chloride 10 mEq p.o. q.a.m. PHYSICAL EXAMINATION: VITAL SIGNS: On the day of discharge, temperature 98.9 degree Fahrenheit, pulse 80, respirations 20, oxygen saturation 96% on room air, blood pressure 127 /68. CONSTITUTIONAL: Not in acute distress, sitting comfortably in chair. HEENT: PERRLA. Moist mucous membranes. Sclerae are anicteric. NECK: No JVD. Supple, with full range of movement. RESPIRATORY: No wheezes, rales or rhonchi. Vesicular breath sounds bilaterally. CARDIOVASCULAR: Regular rate and rhythm. No murmurs, rubs or gallops. Sternotomy scar clean and dry. GASTROINTESTINAL: Soft, nontender, nondistended with positive bowel sounds. MUSCULOSKELETAL: No edema. Pulses present. NEUROLOGIC: Nonfocal. Moves all limbs spontaneously. NEUROLOGIC: Alert and well oriented. No focal deficits. PSYCHIATRIC: Normal affect and mood. SKIN: Warm, dry, well perfused with no rashes. IMAGING: Chest x-ray, no acute pathology. PROCEDURES: Left heart catheterization, coronary artery bypass grafting. CONSULTS: Cardiology, Cardiovascular Surgery, Pulmonology CONDITION AT DISCHARGE: Stable and improved. DIET: Heart healthy, diabetic. CARE GOALS: To follow up with Cardiology as recommended; to return to the emergency room if he develops any chest pain, shortness of breath, diaphoresis or return of his prehospitalization symptoms. ACTIVITY: As directed by Cardiology. No driving or lifting over 15 pounds. Okay to shower, but no baths, hot tub, or swimming pool. Discharge time 65 minutes including chart review, physical examination and documentation. NICKIE
[2017-04-01 15:06] LABS: Actual Bicarbonate (HCO3a) 24.3 mEq/L (22-26); Base Excess (BEa) -0.9 mEq/L (0 (+/-) 2.5); CO2 Tension 42.4 mmHg (35.0-45.0); Hematocrit-ABG 38.9 % (42.0-52.0); O2 Tension (PaO2) 201.6 mmHg (80.0-100.0); pH, Arterial 7.38 (7.35-7.45)
[2017-04-01 15:07] LABS: Analyzer IN Cardio OR; Calcium, Ionized 1.2 mmol/L (1.12-1.30); Puncture Site ALINE
[2017-04-01 15:13] LABS: Actual Bicarbonate (HCO3a) 22.8 mEq/L (22-26); Base Excess (BEa) -2.8 mEq/L (0 (+/-) 2.5); Calcium, Ionized 1.1 mmol/L (1.12-1.30); Hemoglobin (Hb) 11.9 g/dL (14.0-18.0); O2 Tension (PaO2) 186.3 mmHg (80.0-100.0); pH, Arterial 7.34 (7.35-7.45)
[2017-04-01 15:14] LABS: Analyzer IN Cardio OR; Puncture Site ALINE
[2017-04-01 15:14] LABS: Actual Bicarbonate (HCO3a) 22.9 mEq/L (22-26); Analyzer IN Cardio OR; Base Excess (BEa) -1.8 mEq/L (0 (+/-) 2.5); CO2 Tension 38.6 mmHg (35.0-45.0); Calcium, Ionized 1.1 mmol/L (1.12-1.30); Hematocrit-ABG 27.8 % (42.0-52.0); Hemoglobin (Hb) 9.8 g/dL (14.0-18.0); O2 Tension (PaO2) 360.8 mmHg (80.0-100.0); Puncture Site ALINE; pH, Arterial 7.39 (7.35-7.45)
[2017-04-01 15:15] LABS: Actual Bicarbonate (HCO3v) 24 mEq/L (22-26); Analyzer IN Cardio OR; Base Excess -1.5 mEq/L (0 (+/- 2.5)); Hematocrit-VBG 29.4 % (39-50); Hemoglobin (Hb) 9.7 g/dL (13.1-17.2); pH (venous) 7.35 (7.35-7.45)
[2017-04-01 15:16] LABS: Actual Bicarbonate (HCO3a) 22.6 mEq/L (22-26); Base Excess (BEa) -2.6 mEq/L (0 (+/-) 2.5); CO2 Tension 40.4 mmHg (35.0-45.0); Hemoglobin (Hb) 9.8 g/dL (14.0-18.0); O2 Tension (PaO2) 90.8 mmHg (80.0-100.0); pH, Arterial 7.37 (7.35-7.45)
[2017-04-01 15:16] LABS: Calcium, Ionized 1.07 mmol/L (1.16-1.32); Chloride (ABG LAB) 103 mmol/L (98-106); Potassium - ABG Lab 4.4 mmol/L (3.70-5.30); Sodium 137.8 mmol/L (133-146)
[2017-04-01 15:17] LABS: Analyzer IN Cardio OR; Calcium, Ionized 1.2 mmol/L (1.12-1.30); Puncture Site ALINE
[2017-04-01 15:17] LABS: Actual Bicarbonate (HCO3a) 22.5 mEq/L (22-26); Base Excess (BEa) -2.2 mEq/L (0 (+/-) 2.5); CO2 Tension 38.5 mmHg (35.0-45.0); O2 Tension (PaO2) 69.5 mmHg (80.0-100.0); pH, Arterial 7.39 (7.35-7.45)
[2017-04-01 15:18] LABS: Analyzer IN Cardio OR; Calcium, Ionized 1.1 mmol/L (1.12-1.30); Hematocrit-ABG 33.1 % (42.0-52.0); Hemoglobin (Hb) 11.6 g/dL (14.0-18.0); Puncture Site ALINE
== END 2017-03-30 12:07 | disposition home or self-care (01) | DRG 233 ==
LOC: ERS 10:36 → ERHOLD 12:17 → 2NO 15:32 → CCU 03-26 06:46 → 2NO 03-28 16:54
PROVIDERS: ADMIT Emergency Medicine; ATTEND Emergency Medicine
PROC: 4A023N7 Measurement of Cardiac Sampling and Pressure, Left Heart, Percutaneous Approach (ICD-10-PCS; 2017-03-24)
PROC: B2111ZZ Fluoroscopy of Multiple Coronary Arteries using Low Osmolar Contrast (ICD-10-PCS; 2017-03-24)
PROC: B2151ZZ Fluoroscopy of Left Heart using Low Osmolar Contrast (ICD-10-PCS; 2017-03-24)
PROC: 02100Z9 Bypass Coronary Artery, One Artery from Left Internal Mammary, Open Approach (ICD-10-PCS; principal; 2017-03-26)
PROC: 021109W Bypass Coronary Artery, Two Arteries from Aorta with Autologous Venous Tissue, Open Approach (ICD-10-PCS; 2017-03-26)
PROC: 06BQ4ZZ Excision of Left Saphenous Vein, Percutaneous Endoscopic Approach (ICD-10-PCS; 2017-03-26)
PROC: 5A1221Z Performance of Cardiac Output, Continuous (ICD-10-PCS; 2017-03-26)
PROC: B24BZZ4 Ultrasonography of Heart with Aorta, Transesophageal (ICD-10-PCS; 2017-03-26)
DX: I21.4 Non-ST elevation (NSTEMI) myocardial infarction (principal); J96.01 Acute respiratory failure with hypoxia; I49.01 Ventricular fibrillation; I95.89 Other hypotension; E66.01 Morbid (severe) obesity due to excess calories; E11.65 Type 2 diabetes mellitus with hyperglycemia; I48.0 Paroxysmal atrial fibrillation; I47.2 Ventricular tachycardia; Z68.1 Body mass index [BMI] 19.9 or less, adult; I10 Essential (primary) hypertension; Z79.4 Long term (current) use of insulin; Z79.82 Long term (current) use of aspirin; Z95.810 Presence of automatic (implantable) cardiac defibrillator; Z87.891 Personal history of nicotine dependence; Z82.49 Family history of ischemic heart disease and other diseases of the circulatory system; E78.1 Pure hyperglyceridemia; I25.111 Atherosclerotic heart disease of native coronary artery with angina pectoris with documented spasm; Z95.5 Presence of coronary angioplasty implant and graft
CPT/HCPCS: 36415; 36416; 71045; 80048; 80053; 80061; 82553; 82805; 83036; 83690; 83880; 84484; 85025; 85027; 85347; 85610; 85730; 86850; 86900; 86901; 93005; 93010; 93306; 93458; 93798; 94002; 94640; 94760; 96372; 99152; A4216; C1769; J1265; J1642; J1644; J1650; J1815; J1885; J2001; J2250; J2270; J2405; J2440; J2704; J2720; J3010; J3370; J3475; J3480; J7050; J7620; P9045; S0017; S0028

== ENCOUNTER 2017-10-08 19:59 | Emergency (ER) | payer OTHER ==
[2017-10-08 20:30] LABS: #Basophils 0.1 thou/uL (0.0-0.2); #Eosinphils 0.2 thou/uL (0.0-0.7); #Lymphocytes 3.9 thou/uL (1.20-3.40); #Monocytes 0.7 thou/uL (0.11-0.59); #Neutrophils 3.4 thou/uL (1.40-6.50); %Basophils 1.5 % (0.0-1.0); %Eosinophils 2.7 % (0.0-10.0); %Lymphocytes 46.4 % (21.0-51.0); %Monocytes 8.7 % (0.0-10.0); %Neutrophils 40.7 % (42.0-75.0); Hemoglobin 16.1 g/dL (14.0-18.0); Mean Corpuscular HGB CONC 36.1 g/dL (32.0-36.0); Mean Corpuscular Hemoglobin 32.3 pg (27.0-31.0); Mean Corpuscular Volume 89.4 fL (78.0-98.0); Mean Platelet Volume 7.4 fL (7.4-10.4); Platelet Count 229 thou/uL (130-400); RBC Distribution Width 12.3 % (11.5-14.5); Red Blood Cell (RBC) Count 4.99 mill/uL (4.70-6.10); White Blood Cell (WBC) Count 8.4 thou/uL (4.8-10.8)
[2017-10-08 20:51] LABS: ALT (SGPT) 36 U/L (8-55); AST (SGOT) 21 U/L (5-34); Albumin 4.3 g/dL (3.5-5.0); Alkaline Phosphatase 51 U/L (40-150); Anion Gap 15 mmol/L (10-20); BUN (Urea Nitrogen) 15 mg/dL (8.9-20.6); Bilirubin, Total 0.5 mg/dL (0.2-1.2); CK (CPK) 180 U/L (30-200); Calc. Creatinine Clearance 0 mL/min (70-130); Calcium 9.6 mg/dL (7.8-10.44); Carbon Dioxide 24 mmol/L (22-29); Chloride 103 mmol/L (98-107); Estimated GFR-MDRD 90; Globulin 2.7 g/dL (2.4-3.5); Glucose 191 mg/dL (70-105); Potassium 4.1 mmol/L (3.5-5.1); Sodium 138 mmol/L (136-145)
[2017-10-08 20:56] LABS: CKMB 1.8 ng/mL (0-6.6); Troponin I Less than 0.010 ng/mL (< 0.028)
--- NOTE | 2017-10-08 21:10 | RAD ---
CHEST TWO VIEW: 10/08/17 HISTORY: Chest pain. COMPARISON: Chest radiograph 2007. FINDINGS: Heart size is mildly enlarged. No pneumothorax or effusion. Cardiac silhouette and mediastinal contou rs are similar. IMPRESSION: No acute intrathoracic abnormality. POS: [facility]
[2017-10-08 22:43] LABS: Troponin I Less than 0.010 ng/mL (< 0.028)
--- NOTE | 2017-10-11 10:53 | EKG ---
Test Reason : CHEST PAIN Blood Pressure : / mmHG Vent. Rate : 071 BPM Atrial Rate : 071 BPM P-R Int : 222 ms QRS Dur : 098 ms QT Int : 398 ms P-R-T Axes : 048 009 024 degrees QTc Int : 432 ms Atrial-paced rhythm with prolonged AV conduction Abnormal ECG Confirmed by EZ RED, RAYMOND ([id number]), movie editor ERIKA LAZARO ([id number]) on 10/11/2017 10:53:04 AM Referred By: Confirmed By:RAYMOND HUI MD
== END 2017-10-08 23:00 | disposition home or self-care (01) ==
LOC: ERS 19:59
DX: R07.81 Pleurodynia (principal); E11.9 Type 2 diabetes mellitus without complications; E78.5 Hyperlipidemia, unspecified; I10 Essential (primary) hypertension; Z79.4 Long term (current) use of insulin; Z79.82 Long term (current) use of aspirin; Z79.899 Other long term (current) drug therapy
CPT/HCPCS: 36415; 71046; 80053; 82553; 84484; 85025; 93005

== ENCOUNTER 2017-11-03 05:41 | Day surgery (SDC) | payer OTHER ==
[2017-10-31 12:06] VITALS: BMI 41.2
[2017-11-03] MEDS ORDERED: Bupivacaine/Epinephrine 0.25% 30 ML VIAL ONE (06:35)
[2017-11-03] MEDS ORDERED: CEFAZOLIN/Water 2 GM/20 ML SYRINGE ONE (06:55)
[2017-11-03] MEDS ORDERED: Fentanyl 100 MCG/2 ML VIAL ONE ×2 (07:00→08:46)
[2017-11-03] MEDS ORDERED: Midazolam HCl 2 mg/2 ml Vial ONE (07:15)
[2017-11-03] MEDS ORDERED: Bupivacaine HCl 0.5%/Epinephrine 1:200,000/PF 30 ml Vial ONE (07:35)
--- NOTE | 2017-11-03 09:03 | OP ---
DATE OF PROCEDURE: 11/03/2017 PREOPERATIVE DIAGNOSIS: Status post coronary bypass grafting with inferior sternotomy incisional her ting. POSTOPERATIVE DIAGNOSIS: Status post coronary bypass grafting with inferior sternotomy incisional he mer. PROCEDURE: Incisional hernia repair with polypropylene mesh. SURGEON: Arnel Romero M.D. ANESTHESIA: General endotracheal. ESTIMATED BLOOD LOSS: Minimal. PROCEDURE IN DETAIL: After consent was obtained, the patient was brought to operating room and place d supine on the operating room table. Appropriate anesthetic monitor was placed and general endotrac heal anesthesia induced. The inferior portion of his sternotomy incision was opened. The edges of t he fascia were easily defined. The xiphoid was resected to allow for accurate repair to the inferior sternal fascia. Once the edges had been freed, the 4 cm wide polypropylene mesh was brought into th e operative field. Both interrupted and running 2-0 and 3-0 Prolene sutures were placed to secure th e mesh. At completion, the mesh created a nice reconstruction of the anterior abdominal wall. The f ascia and subcutaneous tissues were then infiltrated with 0.5% Marcaine with epinephrine. Wounds wer e closed in layers and Dermabond applied to the skin. The patient was awakened, extubated, and trans ferred to the recovery room in stable condition.
[2017-11-03] MEDS ORDERED: HYDROcodone/Acetaminophen 5/325 mg Tablet ONE (09:40)
[2017-11-03] MEDS ORDERED: Glycopyrrolate 0.2 MG/ML 5 ML SYRINGE ONE (11:38)
[2017-11-03] MEDS ORDERED: Succinylcholine Chloride 20 MG/ML 10 ml SYRINGE FS ONE (11:38)
[2017-11-03] MEDS ORDERED: PROPOFOL 200 MG/20 ML VIAL ONE (11:38)
[2017-11-03] MEDS ORDERED: Lidocaine 1% PF 5 ML VIAL ONE (11:38)
[2017-11-03] MEDS ORDERED: Ondansetron HCl/PF 4 MG/2 ML Vial ONE (11:38)
== END 2017-11-03 10:45 | disposition home or self-care (01) ==
LOC: SDC 05:41
PROVIDERS: ATTEND Thoracic Surgery (Cardiothoracic Vascular Surgery)
PROC: 0WUF0JZ Supplement Abdominal Wall with Synthetic Substitute, Open Approach (ICD-10-PCS; principal; 2017-11-03)
DX: K43.2 Incisional hernia without obstruction or gangrene (principal); I25.10 Atherosclerotic heart disease of native coronary artery without angina pectoris; I10 Essential (primary) hypertension; E78.2 Mixed hyperlipidemia; E11.9 Type 2 diabetes mellitus without complications; E66.09 Other obesity due to excess calories; Z79.4 Long term (current) use of insulin; Z79.82 Long term (current) use of aspirin; Z79.899 Other long term (current) drug therapy
CPT/HCPCS: 36416; 96374; C1781; J0670; J2001; J2250; J2405; J2704; J3010

== ENCOUNTER 2017-11-29 12:12 | Inpatient (IN) | payer OTHER ==
[~2017-11-29 12:12] MED LIST: Heparin 1,000 UNITS/ML VIAL ONE
[2017-11-29 12:44] LABS: PTT 25.2 SEC (22.9-36.1); Prothrombin Time 13.7 SEC (12.0-14.7)
--- NOTE | 2017-11-29 12:48 | RAD ---
CHEST PA AND LATERAL: Date: 11/29/17 HISTORY: 47-year-old male with history of dyspnea and chest pain. COMPARISON: 10/08/17. FINDINGS: Heart size is normal. Postop midline sternotomy. Left ICD. IMPRESSION: No significant acute intrathoracic disease. Stable from prior study. POS: [facility]
[2017-11-29 12:53] LABS: Band 21 % (5-11); Hemoglobin 17.1 g/dL (14.0-18.0); Lymphocytes 8 % (21-51); MDiff Complete? YES; Mean Corpuscular HGB CONC 33.4 g/dL (32.0-36.0); Mean Corpuscular Hemoglobin 30.7 pg (27.0-31.0); Mean Corpuscular Volume 91.9 fL (78.0-98.0); Mean Platelet Volume 7.8 fL (7.4-10.4); Monocytes 7 % (0-10); Neutrophil 64 % (42-75); Platelet Count 216 thou/uL (130-400); RBC Distribution Width 12.1 % (11.5-14.5); Red Blood Cell (RBC) Count 5.56 mill/uL (4.70-6.10)
[2017-11-29 13:03] LABS: CKMB 0.5 ng/mL (0-6.6); Troponin I Less than 0.010 ng/mL (< 0.028)
[2017-11-29 13:05] LABS: ALT (SGPT) 37 U/L (8-55); AST (SGOT) 18 U/L (5-34); Albumin 4.6 g/dL (3.5-5.0); Alkaline Phosphatase 51 U/L (40-150); Anion Gap 16 mmol/L (10-20); BUN (Urea Nitrogen) 17 mg/dL (8.9-20.6); CK (CPK) 115 U/L (30-200); Calc. Creatinine Clearance 0 mL/min (70-130); Calcium 9.8 mg/dL (7.8-10.44); Carbon Dioxide 22 mmol/L (22-29); Chloride 100 mmol/L (98-107); Estimated GFR-MDRD 68; Globulin 3.2 g/dL (2.4-3.5); Glucose 269 mg/dL (70-105); Potassium 4.4 mmol/L (3.5-5.1); Protein, Total 7.8 g/dL (6.0-8.3); Sodium 134 mmol/L (136-145)
[2017-11-29] MEDS ORDERED: Acetaminophen 325 MG/10.15 ML UDCUP ONE (14:09)
--- NOTE | 2017-11-29 14:53 | CT ---
CTA CHEST WITH CONTRAST WITH 3D VOLUME RENDERING: Date: 11/29/17 INDICATION: Pleuritic chest pain, new onset. Patient injured chest on steering wheel, recently. FINDINGS: No definite large filling defect of the main pulmonary arteries or pulmonary trunk. There is a genera lized heterogeneity of the contrast bolus, which has decreased sensitivity and limits assessment at t he segmental and subsegmental branches of the pulmonary arterial system. There is no evidence of thor acic aortic aneurysm. Evidence of prior sternotomy. There is surrounding edema about the sternotomy site which does involve the retrosternal region, as well, with retrosternal component abutting the pulmonary trunk and ventr al aspect of the ascending aorta, and spans an approximately 3.0 cm AP dimension. The possibility of hematoma and/or inflammatory process in this region is not excluded. There is no lobar consolidation, effusion, or pneumothorax. There is no lobar consolidation, effusion, or pneumothorax. Fatty infiltration of the liver with rela tive sparing near the gallbladder fossa is incidentally and partially visualized. There is scattered osseous degenerative change. IMPRESSION: 1. No definite large, central pulmonary embolus. 2. Edema/fluid about patient's sternotomy, which may relate to postsurgical change, although the pos sibility of hematoma and/or inflammatory process, given history of recent injury is not excluded. Cor relate clinically. POS: [facility]
[2017-11-29] MEDS ORDERED: Cefepime 2 GM VIAL ONE (15:00)
[2017-11-29] MEDS ORDERED: ISOVUE-370 76%-LOCM 1 ML ONE (15:12)
[2017-11-29] MEDS ORDERED: Bisacodyl 10 MG SUPP PR PRN (15:18)
[2017-11-29] MEDS ORDERED: Senokot 8.6 MG TAB PO PRN (15:18)
[2017-11-29] MEDS ORDERED: Benzonatate 100 MG CAP PO PRN (15:18)
[2017-11-29] MEDS ORDERED: Calcium Carbonate 500 MG ChewTAB PO PRN (15:18)
[2017-11-29] MEDS ORDERED: Diabetic Tussin 200 MG/10 ML UDCUP PO PRN (15:18)
[2017-11-29] MEDS ORDERED: HYDROcodone/Acetaminophen 5/325 mg Tablet PO PRN (15:18)
[2017-11-29] MEDS ORDERED: Nitroglycerin 0.4 MG TAB (25 Tab Bottle) SL PRN (15:18)
[2017-11-29] MEDS ORDERED: traMADol HCl 50 MG TAB PO PRN (15:18)
[2017-11-29] MEDS ORDERED: cloNIDine 0.1 MG TAB PO PRN (15:18)
[2017-11-29] MEDS ORDERED: Loratadine 10 MG TAB PO PRN (15:18)
[2017-11-29] MEDS ORDERED: Ondansetron HCl/PF 4 MG/2 ML Vial IVP PRN ×2 (15:18)
[2017-11-29] MEDS ORDERED: hydrALAZINE 20 MG/ML VIAL SLOW IVP PRN (15:18)
[2017-11-29] MEDS ORDERED: Bisacodyl 5 MG TAB PO PRN (15:18)
[2017-11-29] MEDS ORDERED: Morphine 4 MG/ML VIAL SLOW IVP PRN (15:58)
[2017-11-29] MEDS ORDERED: Dextrose 5% in Water 1,000 ML IV PRN (16:07)
[2017-11-29] MEDS ORDERED: Dextrose 50% Abboject 50 ML SYRINGE SLOW IVP PRN (16:07)
[2017-11-29] MEDS ORDERED: Ketorolac Tromethamine 30 MG/ML VIAL ONE (16:27)
[2017-11-29] MEDS ORDERED: Ketorolac Tromethamine 30 MG/ML VIAL IVP SCH (16:30)
--- NOTE | 2017-11-29 16:58 | HP ---
DATE OF ADMISSION: 11/29/2017 PRIMARY CARE PHYSICIAN: Sy Burch M.D. PRIMARY SUPERVISOR CORE DRILLING: Wilbur Castelan M.D. PRIMARY CARDIOVASCULAR SURGEON: Arnel Romero M.D. CHIEF COMPLAINT: Shortness of breath of sudden onset and sharp pleuritic chest pain. HISTORY OF PRESENT ILLNESS: Mr. Bradley is a pleasant 47-year-old male with past medical history of c oronary artery disease, status post coronary artery bypass graft in 03/2017; as well as hypertension; dyslipidemia; and diabetes mellitus, type 2, insulin-dependent, who presented to the ER with above-m entioned complaint. History is mainly obtained by the patient himself and electronic medical records have been reviewed. Case has been discussed with the admitting ER physician, Dr. Krueger. Looking at his medical record, it seems like Mr. Bradley had a sternotomy incisional hernia, which was repaired on 11/03/[address] Romero. Mr. Bradley reports that he has been doing fairly well, but 2-3 days ago, while turning in the bed, he ripped opened the scab on the incisional hernia repair site, and since then, they have noticed that it has somewhat opened up and has been draining, and today, the noticed some surrounding redness . The reason that the patient came to the emergency room is that he woke up last night, in the middle o f night around 2:00 a.m., with sudden onset of shortness of breath and a sharp, severe pain with deep breathing, extending from lower sternum upwards about 2-3 inches and then going in a band form on haylie th sides to his back. It was associated with shaking chills and sweating. He denies any fevers. He denies any sick contacts. He denies any rhinorrhea or sore throat. He denies any nausea, vomiting, diarrhea, abdominal pain. No dysuria, frequency, or urgency. He has noticed some decreased urinary frequency since this morning, as he has not been able to pee since this morning. He presented to the ER with these symptoms and was found to be febrile with a temperature T-max of 10 1. He was also found to have leukocytosis with WBC count of 20,000. Rest of his labs were unremarka ble. He did have lactic acid elevation to 2.8. Cardiac enzymes were checked and BNP was checked and both were normal. He underwent a CT angio for PE rule out. It was negative for the same. There is some concern of pos sible hematoma versus inflammatory process about the sternotomy site, which does involve the retroste rnal region. The radiologist has measured this as approximately 3.0 cm in AP dimension. Otherwise, he did not have any evidence of lobar consolidation, effusion, or pneumothorax. He is now being admi tted to the hospital with a presumptive diagnosis of sepsis, likely secondary to ongoing retrosternal inflammatory process. He also has cellulitis surrounding the incisional hernia repair site. PAST MEDICAL HISTORY: 1. Hypertension. 2. Dyslipidemia. 3. Diabetes mellitus, type 2. 4. Coronary artery disease, status post CABG, 03/2017. 5. Sternal incisional hernia, status post repair, 11/03/2017. PAST SURGICAL HISTORY: 1. Coronary artery bypass graft. 2. Cardiac catheterization. 3. Sternal incisional hernia repair. 4. Defibrillator pacemaker placement. 5. Cardiac stenting x1. 6. Left ACL repair. 7. Hernia repair. PAST PSYCHIATRIC HISTORY: Anxiety. SOCIAL HISTORY: He has quit smoking about a year ago. No history of drug or alcohol abuse. He is m arried and lives with his family. FAMILY HISTORY: One brother with angina. One brother of a heart attack in his 30s. Mother has had triple bypass surgery. No family history of diabetes. ALLERGIES: No known medication allergies. HOME MEDICATIONS: As listed in the ER record, fenofibric acid 160 mg daily, Farxiga 10 mg daily, Delicia oxicam 15 mg a day p.r.n., aspirin 325 mg daily, atorvastatin 20 mg daily, carvedilol 6.25 b.i.d., La ntus daily subcutaneously, niacin 1000 mg at bedtime, metformin 500 two tabs b.i.d., isosorbide monon itrate 120 mg daily. CODE STATUS: FULL CODE, discussed with the patient. REVIEW OF SYSTEMS: A 12-point review of systems was done. It is negative except for those mentioned in the history and physical. LABORATORY EXAMINATION: CBC shows WBC's of 20.0 with 21% bands. PT, PTT, and INR are unremarkable. Serum chemistry shows sodium 134, blood sugar 269. Lactic acid 2.8, otherwise unremarkable. CK-MB and troponin normal. BNP 82. Chest x-ray, by my review, has no evidence of pleural effusion, edema, or infiltrate. CT angio results as per above. No pulmonary embolism. PHYSICAL EXAMINATION: VITAL SIGNS: Most recent vital signs, blood pressure 134/71, pulse of 92, respirations 16, temperatu re 100.2. T-max 100.9, saturating 99% on room air. GENERAL EXAMINATION: He is diaphoretic, appears pale, weak, but otherwise awake, alert, oriented x3. HEENT EXAMINATION: Mucous membrane is slightly dry. No oropharyngeal exudate or erythema. Head is normocephalic, atraumatic. Pupils equal, reactive to light and accommodation. Extraocular movement intact. NECK: Supple without any lymphadenopathy, JVD, or bruit. CHEST: Clear to auscultation without any wheezing, rales, or rhonchi. He is tender to palpation ant eriorly both on left and right side just below his nipple line. He does have mild dehiscence of his incisional hernia repair site with oozing of some serosanguineous fluid. Surrounding erythema is not iced. Rate and rhythm are regular. No murmurs. ABDOMEN: Obese, soft, nontender, nondistended. EXTREMITIES: Show trace pitting edema bilaterally. NEUROLOGIC: Nonfocal. PSYCHIATRIC: Normal affect. SKIN: Free of any rashes or bruises. Feels warm and dry to touch. IMPRESSION AND PLAN: 1. Sepsis, likely source is cellulitis around the sternal incisional hernia repair site. A retroste rnal inflammatory process can also not be ruled out. I have requested Cardiovascular Surgery as well as Infectious Diseases specialists to see the patient along with me. I will continue him on broad-s pectrum antibiotics, namely vancomycin and meropenem. He will be admitted to telemetry floor with se psis protocol. He has been started on IV fluids and currently is hemodynamically stable. He has rec eived cefepime in the emergency room. His blood cultures have been sent. We will also check a urina lysis and send urine culture. No other source of infection is evident at this point. 2. Chest pain, likely pleuritic in nature, secondary to inflammatory process. Cardiac enzymes are u nremarkable. Twelve-lead EKG, by my review, shows normal sinus rhythm without acute ST- or T-wave ch anges. Acute coronary syndrome is unlikely on examination as well. We will continue to trend serial cardiac enzymes; however. 3. Dyspnea. This is once again secondary to possibly underlying infection. He is not hypoxic or hy percarbic at this time. We will use oxygen as needed. He has no history of chronic obstructive pulm onary disease or asthma. 4. Coronary artery disease. Restart his home medications with the exception of aspirin. We will ho ld aspirin until Cardiovascular Surgery evaluation. Resume beta joe, nitrate, and statins. 6. Diabetes mellitus, type 2. We will put him on insulin sliding scale with Accu-Cheks a.c. and at bedtime. Hold oral hypoglycemics as the patient might need to be n.p.o. for any surgical procedures. 7. Morbid obesity. BMI to be calculated. 8. Hypertension, currently controlled. Restart home medications with parameters as the patient is s eptic. 9. Deep venous thrombosis and gastrointestinal prophylaxis. 10. Code status: FULL CODE, discussed with the patient. DISPOSITION: Mr. Bradley is currently being admitted to the hospital for sepsis as well as rule out r etrosternal inflammatory process. Estimated length of stay 2-3 midnights. Further management will d epend upon his clinical course.
[2017-11-29] MEDS ORDERED: Vancomycin HCl 2.5 GM in Sodium Chloride 0.9% 500 ML IVPB SCH (17:00)
[2017-11-29] MEDS: Carvedilol 6.25 MG TAB PO SCH (17:30)
[2017-11-29] MEDS: MEROPENEM 1 GM/50 ML 1 GM in Premix Bag 1 BAG IVPB SCH (17:31)
[2017-11-29] MEDS: Sodium Chloride 0.9% 1,000 ML IV SCH ×2 (17:36→21:17)
[2017-11-29] MEDS: HumaLOG 300 UNITS/3 ML VIAL SC PRN ×2 (17:57→21:16)
[2017-11-29 18:50] LABS: Lactic Acid 3.1 mmol/L (0.5-2.2)
[2017-11-29 18:58] LABS: Troponin I Less than 0.010 ng/mL (< 0.028)
[2017-11-29] MEDS: Acetaminophen 325 MG TAB PO PRN (20:14)
[2017-11-29] MEDS: Bisacodyl 5 MG TAB PO PRN (20:15)
[2017-11-29] MEDS: Famotidine 20 MG TAB PO SCH (20:15)
[2017-11-29] MEDS ORDERED: Atorvastatin Calcium 20 MG TAB PO SCH (21:00)
[2017-11-29] MEDS ORDERED: Vancomycin HCl 1 GM in Premix Bag 1 BAG IVPB SCH (21:00)
[2017-11-29 21:42] LABS: Troponin I Less than 0.010 ng/mL (< 0.028)
[2017-11-29] MEDS: Ketorolac Tromethamine 30 MG/ML VIAL IVP SCH (23:36)
[2017-11-30] MEDS: MEROPENEM 1 GM/50 ML 1 GM in Premix Bag 1 BAG IVPB SCH ×2 (02:17→10:44)
[2017-11-30] MEDS: Ketorolac Tromethamine 30 MG/ML VIAL IVP SCH ×4 (04:44→23:56)
[2017-11-30] MEDS: HYDROcodone/Acetaminophen 10/325 mg Tablet PO PRN ×2 (05:56→12:45)
[2017-11-30 06:12] LABS: Anion Gap 13 mmol/L (10-20); BUN (Urea Nitrogen) 20 mg/dL (8.9-20.6); Calc. Creatinine Clearance 210 mL/min (70-130); Calcium 8.6 mg/dL (7.8-10.44); Carbon Dioxide 19 mmol/L (22-29); Chloride 101 mmol/L (98-107); Estimated GFR-MDRD Greater than 90; Glucose 286 mg/dL (70-105); Sodium 129 mmol/L (136-145)
[2017-11-30 06:41] LABS: Band 26 % (5-11); Hemoglobin 14.3 g/dL (14.0-18.0); Lymphocytes 5 % (21-51); MDiff Complete? YES; Mean Corpuscular HGB CONC 31.9 g/dL (32.0-36.0); Mean Corpuscular Hemoglobin 29.1 pg (27.0-31.0); Mean Corpuscular Volume 91.4 fL (78.0-98.0); Mean Platelet Volume 7.8 fL (7.4-10.4); Monocytes 11 % (0-10); Neutrophil 58 % (42-75); Platelet Count 158 thou/uL (130-400); RBC Distribution Width 12.1 % (11.5-14.5); White Blood Cell (WBC) Count 13.9 thou/uL (4.8-10.8)
[2017-11-30] MEDS: Carvedilol 6.25 MG TAB PO SCH ×2 (09:46→16:42)
[2017-11-30] MEDS: Famotidine 20 MG TAB PO SCH ×2 (10:42→20:04)
[2017-11-30] MEDS: Enoxaparin Sodium 40 MG/0.4 ML SYRINGE SC SCH (10:44)
[2017-11-30] MEDS: HumaLOG 300 UNITS/3 ML VIAL SC PRN ×4 (10:46→20:17)
--- NOTE | 2017-11-30 11:30 | PDOC.PN ---
- Subjective Encounter Start Date: 11/30/17 Encounter Start Time: 11:20 Subjective: f/u for sub-sternotomy and incisional hernia abscess with bacteremia , -: sepsis with stap aureus. Currently on Vancomycin and feeling better. - Objective MAR Reviewed: Yes Vital Signs & Weight: Vital Signs (12 hours) Temp Pulse Resp BP Pulse Ox 11/30/17 07:50 98.2 F 85 18 113/67 92 L 11/30/17 04:00 98.2 F 95 20 118/72 97 11/30/17 02:00 99.3 F 96 18 107/61 92 L 11/29/17 23:35 100.5 F H 110 H 16 116/67 94 L Weight Weight 311 lb 1 oz I&O: Tmax 102.1 Result Diagrams: 11/30/17 05:26 11/30/17 05:26 Additional Labs: Accuchecks 11/30/17 11/29/17 11/29/17 06:00 20:56 16:56 POC Glucose 249 H 331 H 257 H Microbiology 11/29/17 16:19 Chest - Pending Bacterial Culture - Preliminary Staphylococcus aureus 11/29/17 12:45 Venous blood - Right Hand Blood Culture - Preliminary Staphylococcus aureus Laboratory Tests 11/29/17 11/29/17 11/29/17 12:24 12:24 12:24 WBC 20.0 H Band Neuts % (Manual) 21 H Sodium 134 L Lactic Acid 2.8 H 11/29/17 11/30/17 18:24 05:26 WBC Band Neuts % (Manual) 26 H Sodium Lactic Acid 3.1 H Radiology Reviewed by me: Yes (CT chest - inflammatory process substernal region ) EKG Reviewed by me: Yes (Tele - SR) Phys Exam - Physical Examination Constitutional: NAD HEENT: PERRLA, sclera anicteric, oral pharynx no lesions Neck: no nodes, no JVD, supple, full ROM Respiratory: no wheezing, no rales, no rhonchi, clear to auscultation bilateral Cardiovascular: RRR, no significant murmur, no rub, gallop substernal open wound with purulent drainage Gastrointestinal: soft, no distention, positive bowel sounds Musculoskeletal: no edema, pulses present Neurological: normal sensation, moves all 4 limbs Psychiatric: normal affect, A&O x 3 Skin: normal turgor, cap refill <2 seconds Dx/Plan (1) Sepsis Code(s): A41.9 - SEPSIS, UNSPECIFIED ORGANISM Status: Acute Comment: Secondary to stap spp from substernal wound, continue Vancomycin IV (2) Bacteremia due to Staphylococcus aureus Code(s): R78.81 - BACTEREMIA Status: Acute Comment: See #1, continue Vancomycin, d/c Meropenem, likely will need PICC line with IV abx x 4 weeks outpt (3) Abscess of sternal region Code(s): L02.213 - CUTANEOUS ABSCESS OF CHEST WALL Status: Acute Comment: Plan for I&D 12/01/17, local wound care (4) Morbid obesity Code(s): E66.01 - MORBID (SEVERE) OBESITY DUE TO EXCESS CALORIES Status: Chronic (5) Type 2 diabetes mellitus Status: Chronic Qualifiers: Diabetes mellitus long lines operator insulin use: with long lines operator use Diabetes mellitus complication status: with hyperglycemia Qualified Code(s): E11.65 - Type 2 diabetes mellitus with hyperglycemia; Z79.4 - bed bug exterminator (current) use of insulin; Z79.4 - care home (current) use of insulin; Z79.4 - care home (current ) use of insulin; Z79.4 - care home (current) use of insulin Comment: Resume home Insulin regimen, ISS, ADA, serial accuchecks - Plan plan discussed w/ family, continue antibiotics, addiction social worker, out of bed/ ambulate, DVT proph w/SCDs Stable currently -: Continue Vancomycin IV -: WCT for local care -: Resume home insulin regimen, ISS -: ID consult pending * AM lab: BMP, CBC
[2017-11-30] MEDS ORDERED: ALPRAZolam 0.5 MG TAB PO PRN (12:07)
[2017-11-30] MEDS ORDERED: INSULIN ASPART 35 UNIT SQ SCH (12:15)
[2017-11-30] MEDS: Oxacillin 2 GM in Sodium Chloride 0.9% 100 ML IVPB SCH ×3 (13:03→20:04)
[2017-11-30] MEDS: Bisacodyl 5 MG TAB PO PRN (15:23)
[2017-11-30] MEDS: Acetaminophen 325 MG TAB PO PRN (15:24)
[2017-11-30] MEDS: metFORMIN XR 500 MG TAB PO SCH (17:33)
[2017-11-30] MEDS: Sodium Chloride 0.9% 1,000 ML IV SCH (17:35)
--- NOTE | 2017-11-30 18:21 | CON ---
DATE OF CONSULTATION: 11/30/2017 REASON FOR CONSULTATION: Sternotomy site infection with bacteremia. HISTORY OF PRESENT ILLNESS: A 47-year-old patient, history of type 2 diabetes, ischemic cardiomyopat hy, previous AICD placement, and coronary artery disease with bypass graft surgery in 03/2017, who de veloped inferior sternal incisional hernia which was repaired in 11/03/2017 and now is admitted with new onset of chest pain at the lower end of the sternotomy site associated with fever of 101 and whit e cell count elevation. The patient has been evaluated by Dr. Mcmillan and I think there is a scheduled I&D procedure for tomorrow. CT of the chest showed no evidence of PE and there was edema fluid abou t the sternotomy involving the retrosternal region in the ventral aspect of the ascending aorta. REVIEW OF SYSTEMS: The patient currently is in the tele area, appears in no acute distress, no heada ches or maybe moderate headaches which have improved with analgesia. No visual symptoms, sore throat , odynophagia, dysphagia, no toothache, no back pain. Chest pain has improved, but intermittently re curs. No dyspnea. No abdominal pain, diarrhea, or genitourinary symptoms. No joint symptoms. No n eurological symptoms. PAST MEDICAL HISTORY: Hypertension, dyslipidemia, type 2 diabetes, coronary artery disease, bypass g raft surgery, ischemic cardiomyopathy, defibrillator placement, left ACL repair, sternal incisional h ernia repair. SOCIAL HISTORY: Former smoker, quit about a year ago. , lives close by. FAMILY HISTORY: Coronary artery disease. ALLERGIES: None. CURRENT MEDICATIONS: Tylenol, Gravette, Xanax, Ecotrin, Lipitor, Tessalon, Dulcolax, Tums, Coreg, Catap res, Pepcid, glucagon, Robitussin, insulin, Toradol, Glucophage, Claritin, morphine, Niaspan, Nitrost at, oxacillin. PHYSICAL EXAMINATION: VITAL SIGNS: T-max 102, currently 99.9, blood pressure 137/75, pulse 88, respirations 18, O2 sat 93% . HEENT: Little bit flushed in the face, but otherwise no acute distress. Patient has an area of dres sing covering the lower end of the sternotomy. Under the dressing, there are small ulcerated areas i n the linear distribution. No obvious drainage was noted at this time. Mild pink erythema around th e area, moderate tenderness. Peripheral IV access. HEENT: Ocular movements are conjugate. Oral cavity normal. NECK: Supple, no jugular vein distention. LUNGS: With symmetric clear breath sounds. HEART: S1, S2, regular rate. No S3 or S4. ABDOMEN: Soft, not distended or tender. No ascites. No bladder distention. EXTREMITIES: No joint inflammatory activity. NEUROLOGIC: Nonfocal. LABORATORY DATA AND IMAGING DATA: White cell count of 20,000 and now 13.9, hemoglobin 17, platelets 216, 21% bands and now 26% bands. INR 1.0. Chemistries with sodium 129, creatinine 0.85, ALT 18, T 37, alkaline phosphatase 51, albumin 4.6, globulin 3.2. CK 115. Troponin less than 0.01. Microbi ology with one set of blood cultures positive for Staphylococcus aureus, likely methicillin-sensitive Staphylococcus aureus. Chest wall drainage culture with Staphylococcus aureus, pending susceptibili ty testing. ASSESSMENT: Ischemic cardiomyopathy, AICD, sternotomy site lower end hernia which were repaired, inf lammatory changes on CT scan in the retrosternal area/mediastinum MSSA bacteremia. DISCUSSION: Differential diagnosis includes sternotomy site infection aureus with MSSA with mediasti nitis, plus/minus colonization of the AICD lead. Patient will have exploration of the incision, I th ink tomorrow. Continue oxacillin. A 2D echocardiogram, may need JERAD to evaluate the leads. Dependi ng on findings in the surgical procedure, we would treat for at least 4 if not 6 weeks or even longer depending on findings.
[2017-11-30] MEDS: Atorvastatin Calcium 20 MG TAB PO SCH (20:03)
[2017-11-30] MEDS: Senokot S 8.6-50 MG TAB PO PRN (20:04)
[2017-12-01] MEDS: Ketorolac Tromethamine 30 MG/ML VIAL IVP SCH (04:58)
[2017-12-01] MEDS: Oxacillin 2 GM in Sodium Chloride 0.9% 100 ML IVPB SCH ×5 (04:59→16:37)
[2017-12-01] MEDS: Carvedilol 6.25 MG TAB PO SCH ×2 (05:08→16:30)
[2017-12-01] MEDS: Sodium Chloride 0.9% 1,000 ML IV SCH (05:10)
[2017-12-01 06:11] LABS: Anion Gap 12 mmol/L (10-20); BUN (Urea Nitrogen) 17 mg/dL (8.9-20.6); Calc. Creatinine Clearance 229 mL/min (70-130); Calcium 8.8 mg/dL (7.8-10.44); Carbon Dioxide 22 mmol/L (22-29); Chloride 104 mmol/L (98-107); Estimated GFR-MDRD Greater than 90; Glucose 253 mg/dL (70-105); Potassium 3.9 mmol/L (3.5-5.1); Sodium 134 mmol/L (136-145)
[2017-12-01 06:25] LABS: Band 10 % (5-11); Eosinophils 4 % (0-10); Hemoglobin 13.2 g/dL (14.0-18.0); Lymphocytes 23 % (21-51); MDiff Complete? YES; Mean Corpuscular HGB CONC 32.7 g/dL (32.0-36.0); Mean Corpuscular Hemoglobin 29.9 pg (27.0-31.0); Mean Corpuscular Volume 91.6 fL (78.0-98.0); Mean Platelet Volume 7.9 fL (7.4-10.4); Monocytes 7 % (0-10); Neutrophil 54 % (42-75); Platelet Count 146 thou/uL (130-400); RBC Distribution Width 11.9 % (11.5-14.5); Reactive Lymphocytes 2 % (0-10); White Blood Cell (WBC) Count 8.3 thou/uL (4.8-10.8)
[2017-12-01] MEDS ORDERED: Neomycin-Polymyxin 1 ML AMP ONE (06:34)
[2017-12-01] MEDS ORDERED: Fentanyl 250 MCG/5 ML VIAL ONE (06:39)
[2017-12-01] MEDS ORDERED: Morphine 4 MG/ML VIAL ONE (06:44)
[2017-12-01] MEDS ORDERED: PACU-Morphine 4MG/ML VIAL SLOW IVP PRN (07:14)
[2017-12-01] MEDS ORDERED: Meperidine HCl/PF 25 MG/ML VIAL SLOW IVP PRN (07:14)
[2017-12-01] MEDS ORDERED: Promethazine HCl 25 MG/ML VIAL SLOW IVP PRN (07:14)
[2017-12-01] MEDS ORDERED: Promethazine HCl 25 MG/ML VIAL IM PRN (07:14)
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
--- NOTE | 2017-12-01 08:24 | OP ---
DATE OF OPERATION: 12/01/2017 PREOPERATIVE DIAGNOSIS: Infected mesh repair of incisional hernia. POSTOPERATIVE DIAGNOSIS: Infected mesh repair of incisional hernia. PROCEDURE: I&D with removal of mesh of the lower sternal incision/incisional hernia repair. SURGEON: Arnel Romero M.D. ANESTHESIA: General endotracheal. ESTIMATED BLOOD LOSS: Minimal. PROCEDURE IN DETAIL: After consent was obtained, the patient was brought to operating room and place d in supine position on the operating room table. Appropriate anesthetic monitor was placed and gene ral endotracheal anesthesia induced. Chest was prepped and draped in usual sterile fashion. The pre vious incision for the incisional hernia repair was opened. The mesh was free floating in fluid. Th ere was no incorporation at all of the mesh into the surrounding tissues. The Prolene sutures were a ll removed. The mesh was debrided and removed. Wound was copiously irrigated with laden solution with Pulsavac. After adequate hemostasis had been obtained, Wound Care Team placed a wound VAC. Th e patient tolerated the procedure well, was awakened, extubated, and transferred to the recovery room in stable condition.
[2017-12-01] MEDS ORDERED: Dapagliflozin Propanediol [Farxiga] 10 MG PO SCH (09:00)
[2017-12-01] MEDS: metFORMIN XR 500 MG TAB PO SCH ×2 (10:01→16:30)
[2017-12-01] MEDS: Aspirin 325 mg Enteric Coated Tablet PO SCH (10:02)
[2017-12-01] MEDS: Enoxaparin Sodium 40 MG/0.4 ML SYRINGE SC SCH (10:02)
[2017-12-01] MEDS: Famotidine 20 MG TAB PO SCH ×2 (10:02→20:31)
[2017-12-01] MEDS: HumaLOG 300 UNITS/3 ML VIAL SC PRN ×3 (11:44→21:37)
--- NOTE | 2017-12-01 14:23 | PDOC.PN ---
- Subjective Encounter Start Date: 12/01/17 Encounter Start Time: 14:00 Subjective: f/u for sternal incisional abscess s/p I&D with placement of wound vac. -: Feels better overall and receiving Oxacillin IV. - Objective MAR Reviewed: Yes Vital Signs & Weight: Vital Signs (12 hours) Temp Pulse Resp BP BP Pulse Ox 12/01/17 13:48 75 22 H 102/57 L 93 L 12/01/17 12:15 97.7 F 78 20 105/55 L 95 12/01/17 11:15 67 22 H 110/62 94 L 12/01/17 10:00 70 22 H 110/59 L 94 L 12/01/17 09:30 72 20 109/57 L 94 L 12/01/17 09:00 99.0 F 72 22 H 112/60 94 L 12/01/17 06:00 86 18 92 L 12/01/17 05:08 115/65 12/01/17 03:40 98.4 F 81 13 115/65 92 L Weight Weight 311 lb 1 oz I&O: 11/30/17 12/01/17 12/02/17 06:59 06:59 06:59 Intake Total 1990 Output Total 1625 Balance 365 Result Diagrams: 12/01/17 05:23 12/01/17 05:23 Additional Labs: Accuchecks 12/01/17 12/01/17 11/30/17 11:01 05:38 20:16 POC Glucose 256 H 230 H 287 H 11/30/17 11/30/17 16:34 14:42 POC Glucose 303 H 337 H Microbiology 11/29/17 20:27 Urine clean catch Urine Culture - Final NO GROWTH AT 36 HOURS 11/29/17 16:19 Chest - Pending Bacterial Culture - Preliminary Staphylococcus aureus 11/29/17 12:45 Venous blood - Right Hand Blood Culture - Preliminary Staphylococcus aureus Laboratory Tests 11/29/17 11/29/17 11/29/17 12:24 12:24 12:24 WBC 20.0 H Band Neuts % (Manual) 21 H Sodium 134 L Lactic Acid 2.8 H 11/29/17 11/30/17 12/01/17 18:24 05:26 05:23 WBC 13.9 H Band Neuts % (Manual) 26 H 10 Sodium Lactic Acid 3.1 H EKG Reviewed by me: Yes (Tele - SR) Phys Exam - Physical Examination Constitutional: NAD HEENT: PERRLA, sclera anicteric, oral pharynx no lesions Neck: no nodes, no JVD, supple, full ROM Respiratory: no wheezing, no rales, no rhonchi, clear to auscultation bilateral S1, S2 Cardiovascular: RRR, no significant murmur, no rub, gallop inferior chest and mid-epigastric wound vac in place Gastrointestinal: soft, no distention, positive bowel sounds Musculoskeletal: no edema, pulses present Neurological: normal sensation, moves all 4 limbs Psychiatric: normal affect, A&O x 3 Skin: normal turgor, cap refill <2 seconds Dx/Plan (1) Sepsis Code(s): A41.9 - SEPSIS, UNSPECIFIED ORGANISM Status: Acute Comment: Secondary to stap spp from substernal wound, continue Oxacillin IV, plan for IV abx 4-6 weeks after d/c, PICC line placement (2) Bacteremia due to Staphylococcus aureus Code(s): R78.81 - BACTEREMIA Status: Acute Comment: See #1, continue Oxacillin, d/c Meropenem, likely will need PICC line with IV abx x 4-6 weeks (3) Abscess of sternal region Code(s): L02.213 - CUTANEOUS ABSCESS OF CHEST WALL Status: Acute Comment: s/ p I&D 12/01/17, local wound care with wound vac (4) Morbid obesity Code(s): E66.01 - MORBID (SEVERE) OBESITY DUE TO EXCESS CALORIES Status: Chronic (5) Type 2 diabetes mellitus Status: Chronic Qualifiers: Diabetes mellitus shelter insulin use: with shelter use Diabetes mellitus complication status: with hyperglycemia Qualified Code(s): E11.65 - Type 2 diabetes mellitus with hyperglycemia; Z79.4 - prison (current) use of insulin; Z79.4 - prison (current) use of insulin; Z79.4 - intermodal customer service (current ) use of insulin; Z79.4 - prison (current) use of insulin Comment: Resume home Insulin regimen, ISS, ADA, serial accuchecks - Plan plan discussed w/ family, continue antibiotics, social worker palliative care, out of bed/ ambulate, DVT proph w/SCDs Stable currently -: Plan for PICC line placement -: Consider JERAD to r/o AICD lead involvement -: Continue Oxacillin IV -: WCT for local care and wound vac mgmt * .
[2017-12-01] MEDS: HYDROcodone/Acetaminophen 10/325 mg Tablet PO PRN ×2 (15:09→20:30)
[2017-12-01] MEDS ORDERED: Lidocaine 1% PF 5 ML VIAL ONE (16:56)
[2017-12-01] MEDS ORDERED: Glycopyrrolate 0.2 MG/ML 5 ML SYRINGE ONE (16:56)
[2017-12-01] MEDS ORDERED: PHENYLEPHRINE-NS 100 MCG/ML 10 ML SYRINGE ONE (16:56)
[2017-12-01] MEDS ORDERED: ePHEDrine/0.9% NaCl/PF SYRINGE 50 mg/10 ml ONE (16:56)
[2017-12-01] MEDS ORDERED: PROPOFOL 200 MG/20 ML VIAL ONE (16:56)
[2017-12-01] MEDS ORDERED: Metoclopramide HCl 10 MG/2 ML VIAL ONE (16:56)
[2017-12-01] MEDS ORDERED: Ondansetron HCl/PF 4 MG/2 ML Vial ONE (16:56)
--- NOTE | 2017-12-01 20:05 | PRG ---
DATE OF SERVICE: 12/01/2017 SUBJECTIVE: The patient had I&D by Dr. Romero. The area of the mesh was infected in the lower end of the sternotomy. No incorporation of the mesh into the surrounding tissues. Wound VAC was placed. The patient is feeling otherwise okay. He has little bit of pain at the sternotomy site. No diarrhea. PHYSICAL EXAMINATION: VITAL SIGNS: Normal except for some tachypnea. GENERAL: Awake, oriented. LUNGS: Clear. HEART: S1, S2 regular rate. ABDOMEN: Soft, not distended. EXTREMITIES: Moves extremities equally. LABORATORY DATA: White cell count 8.3, hemoglobin 13, platelets 146. Sodium 134, creatinine 0.78, AST 18, ALT 37. Staph aureus methicillin sensitive isolated from the sites, the chest and venous blood. The previous CT demonstrates the areas of inflammatory change at the sternotomy site all the way to the upper segments. It is unlikely that those are just normal postoperative findings since the procedure was performed more than 7 months ago. There is some fluid and edema about the patient's sternotomy and an inflammatory process cannot be excluded. Continue oxacillin, eventual transition to cefazolin and discharge planning on IV cefazolin through a PICC line for at least 4 weeks but likely longer. Follow up CT findings. MTDD
[2017-12-01] MEDS ORDERED: Sodium Chloride 0.9% 10 ML ONE (20:15)
[2017-12-01] MEDS: Atorvastatin Calcium 20 MG TAB PO SCH (20:31)
[2017-12-01] MEDS: CEFAZOLIN/Water 2 GM/20 ML SYRINGE SLOW IVP SCH (20:31)
[2017-12-01] MEDS: Bisacodyl 5 MG TAB PO PRN (21:36)
[2017-12-02] MEDS: HYDROcodone/Acetaminophen 10/325 mg Tablet PO PRN ×2 (01:08→10:15)
[2017-12-02] MEDS: Sodium Chloride 0.9% 10 ML ONE (03:32)
[2017-12-02] MEDS: CEFAZOLIN/Water 2 GM/20 ML SYRINGE SLOW IVP SCH ×3 (03:32→18:30)
[2017-12-02] MEDS: metFORMIN XR 500 MG TAB PO SCH ×2 (09:33→16:07)
[2017-12-02] MEDS: Carvedilol 6.25 MG TAB PO SCH ×2 (09:37→16:07)
[2017-12-02] MEDS: Famotidine 20 MG TAB PO SCH ×2 (09:38→20:29)
[2017-12-02] MEDS: Enoxaparin Sodium 40 MG/0.4 ML SYRINGE SC SCH (09:39)
[2017-12-02] MEDS: HumaLOG 300 UNITS/3 ML VIAL SC PRN ×4 (09:42→20:38)
--- NOTE | 2017-12-02 10:41 | SPC ---
RIGHT UPPER EXTREMITY PICC LINE WITH ULTRASOUND GUIDANCE: HISTORY: Infection. COMPARISON: None. EXPOSURE: Three minutes with [id number] mGy per cm2. FINDINGS: Successful right upper extremity PICC line placement with ultrasound guidance. A 43 cm single-lumen 5 [place]ian PICC line is inserted, such that the distal tip is in the superior vena cava. The catheter flushes and aspirates without difficulty. TECHNIQUE: Consent was obtained to perform an ultrasound guided PICC line in the right upper extremity. The rig ht arm was prepped and draped in a sterile fashion. Lidocaine 1% buffered with sodium bicarbonate wa s used for local anesthesia. Under ultrasound guidance, a micropuncture needle was used to cannulate the basilic vein. A 0.018 guidewire was advanced through the needle, to the level of the superior v aisha cava. The track was dilated. A single-lumen 5 [place]ian catheter was advanced over the sire. The wire was removed. The catheter flushed and aspirated without difficulty. Trim length was 43 cm. IMPRESSION: Successful right upper extremity peripherally inserted central catheter line placement with ultrasoun d guidance. POS: [facility]
[2017-12-02 11:27] VITALS: BMI 44.1
[2017-12-02] MEDS: Senokot S 8.6-50 MG TAB PO PRN (11:43)
[2017-12-02] MEDS: Aspirin 325 mg Enteric Coated Tablet PO SCH (11:44)
--- NOTE | 2017-12-02 15:14 | PDOC.PN ---
- Subjective Encounter Start Date: 12/02/17 Encounter Start Time: 15:05 Subjective: f/u for sternal wound abscess s/p I&D with wound vac. Receiving -: Ancef and had RUE PICC line placed today. Feels good overall. - Objective MAR Reviewed: Yes Vital Signs & Weight: Vital Signs (12 hours) Temp Pulse Resp BP BP Pulse Ox 12/02/17 11:54 98.2 F 80 16 135/70 97 12/02/17 09:37 139/70 12/02/17 08:02 97.9 F 71 16 140/67 96 12/02/17 03:31 98.4 F 76 20 112/62 92 L Weight Admit Weight 311 lb 1 oz Weight 325 lb 9.6 oz I&O: 12/01/17 12/02/17 12/03/17 06:59 06:59 06:59 Intake Total 1989 1459 Output Total 1625 1700 Balance 365 -240 Result Diagrams: 12/01/17 05:23 12/01/17 05:23 Additional Labs: Accuchecks 12/02/17 12/02/17 12/01/17 11:02 05:44 21:13 POC Glucose 228 H 239 H 311 H 12/01/17 16:29 POC Glucose 268 H Microbiology 11/29/17 20:27 Urine clean catch Urine Culture - Final NO GROWTH AT 36 HOURS 11/29/17 16:19 Chest - Pending Bacterial Culture - Preliminary Staphylococcus aureus 11/29/17 12:45 Venous blood - Right Hand Blood Culture - Preliminary Staphylococcus aureus Laboratory Tests 11/29/17 11/29/17 11/29/17 12:24 12:24 12:24 WBC 20.0 H Band Neuts % (Manual) 21 H Sodium 134 L Lactic Acid 2.8 H 11/29/17 11/30/17 12/01/17 18:24 05:26 05:23 WBC 13.9 H Band Neuts % (Manual) 26 H 10 Sodium Lactic Acid 3.1 H EKG Reviewed by me: Yes (Tele - SR) Phys Exam - Physical Examination Constitutional: NAD HEENT: PERRLA, sclera anicteric Neck: no nodes, no JVD, supple, full ROM Respiratory: no wheezing, no rales, no rhonchi, clear to auscultation bilateral S1, S2 Cardiovascular: RRR, no significant murmur, no rub, gallop wound vac in place in mid-epigastric region, minimal drainage in tubing Gastrointestinal: soft, no distention, positive bowel sounds Musculoskeletal: no edema, pulses present Neurological: normal sensation, moves all 4 limbs Psychiatric: normal affect, A&O x 3 Skin: normal turgor, cap refill <2 seconds Dx/Plan (1) Sepsis Code(s): A41.9 - SEPSIS, UNSPECIFIED ORGANISM Status: Acute Comment: Secondary to stap spp from substernal wound, continue Ancef IV, plan for IV abx 4-6 weeks after d/c, PICC line placement 12/02/17 (2) Bacteremia due to Staphylococcus aureus Code(s): R78.81 - BACTEREMIA Status: Acute Comment: See #1, continue Ancef via PICC line with IV abx x 4-6 weeks, services for assistance (3) Abscess of sternal region Code(s): L02.213 - CUTANEOUS ABSCESS OF CHEST WALL Status: Acute Comment: s/ p I&D 12/01/17, local wound care with wound vac (4) Morbid obesity Code(s): E66.01 - MORBID (SEVERE) OBESITY DUE TO EXCESS CALORIES Status: Chronic (5) Type 2 diabetes mellitus Status: Chronic Qualifiers: Diabetes mellitus halfway insulin use: with terminal manager use Diabetes mellitus complication status: with hyperglycemia Qualified Code(s): E11.65 - Type 2 diabetes mellitus with hyperglycemia; Z79.4 - marine oil terminal superintendent (current) use of insulin; Z79.4 - marine oil terminal superintendent (current) use of insulin; Z79.4 - marine oil terminal superintendent (current ) use of insulin; Z79.4 - [facility] (current) use of insulin Comment: Resume home Insulin regimen, ISS, ADA, serial accuchecks - Plan plan discussed w/ family, continue antibiotics, social service coordinator, out of bed/ ambulate, DVT proph w/SCDs Stable overall -: Continue Ancef IV for 4-6 weeks -: OOB/ambulate -: WCT for wound care, wound vac mgmt -: AM lab: CBC * CM for HH options
[2017-12-02] MEDS ORDERED: Polyethylene Glycol 3350 17 GM Packet PO SCH (17:45)
[2017-12-02] MEDS: Atorvastatin Calcium 20 MG TAB PO SCH (20:29)
[2017-12-03] MEDS: CEFAZOLIN/Water 2 GM/20 ML SYRINGE SLOW IVP SCH ×3 (03:34→17:28)
[2017-12-03] MEDS: HYDROcodone/Acetaminophen 10/325 mg Tablet PO PRN ×2 (03:37→09:24)
[2017-12-03 05:23] LABS: #Eosinphils 0.2 thou/uL (0.0-0.7); #Lymphocytes 1.7 thou/uL (1.20-3.40); #Monocytes 0.8 thou/uL (0.11-0.59); #Neutrophils 4.6 thou/uL (1.40-6.50); %Eosinophils 2.6 % (0.0-10.0); %Lymphocytes 22.7 % (21.0-51.0); %Monocytes 11.3 % (0.0-10.0); %Neutrophils 63.4 % (42.0-75.0); Hemoglobin 12.7 g/dL (14.0-18.0); Mean Corpuscular HGB CONC 33.1 g/dL (32.0-36.0); Mean Corpuscular Hemoglobin 30.2 pg (27.0-31.0); Mean Corpuscular Volume 91.2 fL (78.0-98.0); Mean Platelet Volume 7.8 fL (7.4-10.4); Platelet Count 192 thou/uL (130-400); RBC Distribution Width 11.7 % (11.5-14.5); Red Blood Cell (RBC) Count 4.22 mill/uL (4.70-6.10); White Blood Cell (WBC) Count 7.3 thou/uL (4.8-10.8)
[2017-12-03] MEDS: HumaLOG 300 UNITS/3 ML VIAL SC PRN ×2 (08:37→11:30)
[2017-12-03] MEDS: Enoxaparin Sodium 40 MG/0.4 ML SYRINGE SC SCH (08:37)
[2017-12-03] MEDS: metFORMIN XR 500 MG TAB PO SCH ×2 (08:38→17:28)
[2017-12-03] MEDS: Carvedilol 6.25 MG TAB PO SCH ×2 (08:38→17:28)
[2017-12-03] MEDS: Aspirin 325 mg Enteric Coated Tablet PO SCH (08:38)
[2017-12-03] MEDS: Famotidine 20 MG TAB PO SCH (08:39)
[2017-12-03] MEDS: Sodium Chloride 0.9% 10 ML ONE (08:39)
[2017-12-03] MEDS ORDERED: Polyethylene Glycol 3350 17 GM Packet PO SCH (09:00)
[2017-12-03 15:45] VITALS: BP 139/88; TEMP 98.4
[2017-12-03] MEDS ORDERED: Sodium Chloride 0.65% Nasal 44 ML BOT EA NARE PRN (15:45)
--- NOTE | 2017-12-03 23:58 | DIS ---
PRIMARY CARE PROVIDER: Sy Burch MD DATE OF ADMISSION: 11/29/2017 DATE OF DISCHARGE: 12/03/2017 DISCHARGE DIAGNOSES: 1. Sepsis. 2. Staphylococcus aureus bacteremia. 3. Abscess of sternal region. CONDITION OF PATIENT ON THE DAY OF DISCHARGE: Stable. I assessed Mr. Bradley on the day of discharge . He denies any chest pain or shortness of breath. Vital signs are stable. S1 and S2 are heard, re gular. Lungs are clear to auscultation bilaterally. CONSULTATIONS DURING THIS HOSPITALIZATION: Infectious diseases, Dr. Paul and Cardiovascular Surgery , Dr. Mcmillan. DISCHARGE MEDICATIONS: Cefazolin 2 g intravenously every 8 hours for 6 weeks, Xanax 0.5 mg as needed , Farxiga 10 mg daily, NovoLog 35 units as directed, Imdur ER 120 mg at bedtime, meloxicam 15 mg rowdy y, metformin 1000 mg 2 times a day, niacin 1000 mg at bedtime, aspirin 325 mg daily, Lipitor 20 mg at bedtime, and Coreg 6.25 mg 2 times a day. HOSPITAL COURSE: Mr. Bradley is a pleasant 47-year-old gentleman who was admitted to [facility] on 11/29/2017 for sepsis, likely from infection at sternal incisional hernia repair site. He was seen by CV Surgery as well as by Infectious Diseases Service. He was treated with int ravenous antibiotics. On 12/01, he underwent incision and drainage with removal of mesh of the lower sternal incision/incisional hernia repair. Blood cultures grew Staphylococcus aureus that was resis tant to amoxicillin and piperacillin, but was otherwise pansensitive. Final urine cultures did not s how any growth. Arrangements were made for wound VAC as well as outpatient antibiotic therapy through Infectious Dise ases service office. He is being discharged home in a stable condition. On the day of discharge, he has white count of 7300, hemoglobin 12.7, platelet count 192,000. Many thanks for allowing me to participate in your patient's care. Please feel free to contact me wi th any questions or concerns. DISCHARGE DESTINATION: Home. TOTAL AMOUNT OF TIME SPENT COORDINATING THIS DISCHARGE: 33 minutes.
== END 2017-12-03 18:04 | disposition home or self-care (01) | DRG 919 ==
LOC: ERS 12:12 → 2NO 16:41
PROVIDERS: ADMIT Internal Medicine; ATTEND Internal Medicine
PROC: 0JP Subcutaneous Tissue and Fascia, Removal (ICD-10-PCS; principal; 2017-12-01)
PROC: 02HV33Z Insertion of Infusion Device into Superior Vena Cava, Percutaneous Approach (ICD-10-PCS; 2017-12-02)
PROC: B548ZZA Ultrasonography of Superior Vena Cava, Guidance (ICD-10-PCS; 2017-12-02)
DX: T85.79XA Infection and inflammatory reaction due to other internal prosthetic devices, implants and grafts, initial encounter (principal); A41.01 Sepsis due to Methicillin susceptible Staphylococcus aureus; Z68.41 Body mass index [BMI] 40.0-44.9, adult; L03.313 Cellulitis of chest wall; L02.213 Cutaneous abscess of chest wall; E11.65 Type 2 diabetes mellitus with hyperglycemia; Z79.4 Long term (current) use of insulin; Y83.8 Other surgical procedures as the cause of abnormal reaction of the patient, or of later complication, without mention of misadventure at the time of the procedure; Y92.9 Unspecified place or not applicable; I25.5 Ischemic cardiomyopathy; Z95.810 Presence of automatic (implantable) cardiac defibrillator; I25.10 Atherosclerotic heart disease of native coronary artery without angina pectoris; Z95.1 Presence of aortocoronary bypass graft; Z87.891 Personal history of nicotine dependence; Z82.49 Family history of ischemic heart disease and other diseases of the circulatory system; E66.01 Morbid (severe) obesity due to excess calories
CPT/HCPCS: 36415; 36416; 36569; 71046; 71275; 80048; 80053; 82553; 83605; 83880; 84484; 85007; 85025; 85027; 85610; 85730; 87040; 87070; 87077; 87086; 87149; 87186; 87205; 90471; 90686; 93005; 94760; 96361; 96365; 96375; C1751; G0008; J0131; J0692; J1644; J1650; J1885; J2001; J2185; J2270; J2405; J2700; J2704; J2765; J3010; J3370; J7050

== ENCOUNTER 2018-01-01 08:01 | Outpatient (CLI) | payer OTHER ==
--- NOTE | 2018-01-01 09:27 | CT ---
CT CHEST WITH CONTRAST: Date: 01/01/18 HISTORY: Osteomyelitis of sternum. COMPARISON: CTA chest dated 11/29/17. FINDINGS: Lungs are clear. No focal air space consolidation, pneumothorax, or effusion. Patient has a wound VAC in place. Erosive changes of the sternum are similar. No progressive erosive changes. Retrosternal fluid collection is slightly decreased in size. No pericardial effusion. No moisés dence for mediastinal infection. No axillary adenopathy. No acute rib fracture. No thoracic spine compression fracture. IMPRESSION: Evidence of healing sternal infection and osteomyelitis. The retrosternal fluid collection is decreas ed and there are no progressive erosive changes of the sternum. No evidence of mediastinitis. POS: [facility]
[2018-01-01] MEDS ORDERED: ISOVUE-370 76%-LOCM 1 ML ONE (13:56)
== END 2018-01-01 08:02 | disposition home or self-care (01) ==
LOC: BICCT 08:01
PROVIDERS: ATTEND Internal Medicine Infectious Disease
DX: M86.9 Osteomyelitis, unspecified (principal)
CPT/HCPCS: 71260

== ENCOUNTER 2018-02-05 14:25 | Outpatient (CLI) | payer OTHER ==
--- NOTE | 2018-02-05 17:44 | CT ---
CT THORAX WITH IV CONTRAST: 02/05/18 HISTORY: Patient with acute osteomyelitis involving the sternum. COMPARISON: 01/01/18 and CTA chest on 11/29/17. FINDINGS: Previously noted wound vac overlying the lower right sternum and most superior aspect of the epigastr ic region is no longer visualized. The defect in the region of the open wound has improved. Erosive c hanges involving sternum are again seen. There are lucencies seen surrounding the lower most sternal wire, some of this may be artifactual due to density of the sternal wires; however, this is stable fr om the prior exam. No obvious retrosternal fluid collection is seen. There is mild soft tissue densit y seen in a retrosternal location at the superior aspect of the sternum below the level of the sterno manubrial junction which may be related to residual changes secondary to prior infection. Stranding w ithin the anterior superior mediastinum has improved as well. Stranding of the subcutaneous soft tiss ues anterior to the level of the sternum also appear improved. There is no evidence of lymphadenopathy. Left subclavian AICD device remains in place. A right sided PICC line is again noted in place. The lungs remain clear. No pleural effusion is seen. Upper abdomen demonstrates diminished attenuation of the liver which may be related to mild fatty inf iltration. Remainder of the upper abdomen has a normal CT appearance. IMPRESSION: 1. Findings suggesting healing and improvement in sternal infection and osteomyelitis. No obviou s retrosternal fluid collection is seen on this examination. Erosive changes of the sternum are overa ll similar to the prior exam. 2. Improvement in midline defect lower aspect of the sternum in the epigastric region; the wound vac is no longer visualized in the region of the defect. POS: [facility]
== END 2018-02-05 14:26 | disposition home or self-care (01) ==
LOC: CT 14:25
PROVIDERS: ATTEND Internal Medicine Infectious Disease
DX: M86.08 Acute hematogenous osteomyelitis, other sites (principal)
CPT/HCPCS: 71260

== ENCOUNTER 2019-10-26 08:00 | Outpatient (CLI) | payer OTHER ==
[2019-10-27 13:02] LABS: SARS-CoV-2 MS2 Positive; SARS-CoV-2 N Gene Negative; SARS-CoV-2 S Gene Negative; SARS-CoV-2 by NAA Not Detected (NotDetected); SARS-CoV-2 orf1ab Negative
== END 2019-10-26 08:01 | disposition home or self-care (01) ==
LOC: LABBT 08:00
PROVIDERS: ATTEND Internal Medicine Gastroenterology
DX: Z12.11 Encounter for screening for malignant neoplasm of colon (principal); Z20.828 Contact with and (suspected) exposure to other viral communicable diseases
CPT/HCPCS: 87635; U0003

== ENCOUNTER 2019-10-28 06:17 | Day surgery (SDC) | payer OTHER ==
[2019-10-27 12:43] VITALS: BMI 41.2
[2019-10-28] MEDS ORDERED: Sodium Chloride 0.9% 10 ML ONE (07:34)
[2019-10-28] MEDS ORDERED: PROPOFOL 200 MG/20 ML VIAL ONE (10:23)
--- NOTE | 2019-10-28 12:32 | OP ---
DATE OF PROCEDURE: 10/28/2019 PREPROCEDURE DIAGNOSIS: Colorectal cancer screening. POSTPROCEDURE DIAGNOSIS: Diverticulosis coli, sigmoid colon; otherwise normal colonoscopy. ANESTHESIA: TIVA. PROCEDURE IN DETAIL: After the patient was informed of the risk, benefits, and possible complications of endoscopy including perforation, reaction to medication, aspiration, informed consent was obtained. The patient was brought to the endoscopy suite, where he was sedated in gradual fashion. Once he was comfortable, a rectal examination was performed, and there was no blood. The endoscope was advanced to the anal canal through the colon to cecum which identified by the ileocecal valve and appendiceal orifice. The scope was slowly removed. There was good visualization of the mucosa. There was diverticulosis coli in the sigmoid and descending colon with no signs of inflammation. The retroflexed views in the rectum were normal. No polyps or masses were seen. The prep was good. Retroflexed views were performed in the right colon. The patient was brought to the recovery room in stable condition. RECOMMENDATIONS: Recall colonoscopy in 10 years. Job ID: [id number]
== END 2019-10-28 10:15 | disposition home or self-care (01) ==
LOC: SDC 06:17
PROVIDERS: ATTEND Internal Medicine Gastroenterology
PROC: 0DJD8ZZ Inspection of Lower Intestinal Tract, Via Natural or Artificial Opening Endoscopic (ICD-10-PCS; principal; 2019-10-28)
DX: Z12.11 Encounter for screening for malignant neoplasm of colon (principal); K57.30 Diverticulosis of large intestine without perforation or abscess without bleeding; E11.9 Type 2 diabetes mellitus without complications; K21.9 Gastro-esophageal reflux disease without esophagitis; F17.210 Nicotine dependence, cigarettes, uncomplicated; F32.9 Major depressive disorder, single episode, unspecified; I10 Essential (primary) hypertension; Z79.1 Long term (current) use of non-steroidal anti-inflammatories (NSAID); Z79.4 Long term (current) use of insulin; Z79.82 Long term (current) use of aspirin; Z79.899 Other long term (current) drug therapy; Z95.1 Presence of aortocoronary bypass graft
CPT/HCPCS: 36416; J2704

== ENCOUNTER 2022-05-07 01:02 | Inpatient (IN) | payer BC ==
[2022-05-07] MEDS ORDERED: Aspirin Chewable 81 MG TAB ONE (01:41)
[2022-05-07] MEDS ORDERED: Nitroglycerin 2% Ointment 1 INCH/1 GM Packet ONE (01:41)
[2022-05-07 01:50] LABS: #Basophils 0.1 thou/uL (0.0-0.2); #Eosinphils 0.1 thou/uL (0.0-0.7); #Lymphocytes 2.7 thou/uL (1.20-3.40); #Monocytes 0.6 thou/uL (0.11-0.59); #Neutrophils 3.3 thou/uL (1.40-6.50); %Eosinophils 1.9 % (0.0-10.0); %Lymphocytes 40.7 % (21.0-51.0); %Monocytes 8.1 % (0.0-10.0); %Neutrophils 48.4 % (42.0-75.0); Hemoglobin 16.9 g/dL (14.0-18.0); Mean Corpuscular HGB CONC 34.9 g/dL (32.0-36.0); Mean Corpuscular Hemoglobin 32.6 pg (27.0-31.0); Mean Corpuscular Volume 93.4 fl (78.0-98.0); Mean Platelet Volume 7.9 fL (7.4-10.4); Platelet Count 223 10x3/uL (130-400); RBC Distribution Width 11.6 % (11.5-14.5); Red Blood Cell (RBC) Count 5.18 mill/uL (4.70-6.10); White Blood Cell (WBC) Count 6.7 10x3/uL (4.8-10.8)
[2022-05-07 02:11] LABS: ALT (SGPT) 38 U/L (8-55); AST (SGOT) 27 U/L (5-34); Alkaline Phosphatase 54 U/L (40-110); Anion Gap 15 mmol/L (10-20); BUN (Urea Nitrogen) 19 mg/dL (8.4-25.7); Bilirubin, Total 0.4 mg/dL (0.2-1.2); Calc. Creatinine Clearance 0 mL/min (70-130); Calcium 9.5 mg/dL (7.8-10.44); Carbon Dioxide 23 mmol/L (22-29); Chloride 104 mmol/L (98-107); Estimated GFR 105; Glucose 229 mg/dL (70-105); Lipase 60 U/L (8-78); Potassium 4.1 mmol/L (3.5-5.1); Sodium 138 mmol/L (136-145)
[2022-05-07 02:17] LABS: CK (CPK) 143 U/L (30-200)
[2022-05-07] MEDS ORDERED: Ondansetron PF 4 MG/2 ML Vial IVP PRN (03:45)
[2022-05-07] MEDS ORDERED: Ondansetron ODT 4 MG TAB SL PRN (03:45)
[2022-05-07 04:54] VITALS: BMI 37.0
[2022-05-07 06:05] LABS: Troponin I 0.078 ng/mL (< 0.028)
[2022-05-07] MEDS ORDERED: Acetaminophen 325 MG TAB PO PRN (08:21)
[2022-05-07] MEDS ORDERED: Senokot S 8.6-50 MG TAB PO PRN (08:21)
[2022-05-07] MEDS ORDERED: HumaLOG 300 UNITS/3 ML VIAL SC PRN (08:22)
[2022-05-07] MEDS ORDERED: Dextrose 50% Abboject 50 ML SYRINGE SLOW IVP PRN (08:22)
[2022-05-07] MEDS ORDERED: Dextrose 5% in Water 1,000 ML IV PRN (08:22)
[2022-05-07] MEDS ORDERED: Aspirin 325 MG TAB PO SCH (09:00)
[2022-05-07 09:03] LABS: Troponin I 0.122 ng/mL (< 0.028)
[2022-05-07] MEDS: busPIRone HCl 5 MG TAB PO SCH ×2 (09:54→20:31)
[2022-05-07] MEDS: Empagliflozin 10 MG TAB PO SCH (09:54)
[2022-05-07] MEDS: Aspirin 325 mg Enteric Coated Tablet PO SCH (09:55)
[2022-05-07 10:16] LABS: Cardiac Risk 3.5 (Less than 4.5)
[2022-05-07 12:10] LABS: Troponin I 0.171 ng/mL (< 0.028)
[2022-05-07] MEDS: Carvedilol 6.25 MG TAB PO SCH (18:36)
[2022-05-07] MEDS ORDERED: Communication Order-Pharmacy FS SCH (19:30)
[2022-05-07] MEDS: Atorvastatin Calcium 20 MG TAB PO SCH (20:31)
[2022-05-08 04:36] LABS: #Basophils 0.1 thou/uL (0.0-0.2); #Eosinphils 0.1 thou/uL (0.0-0.7); #Lymphocytes 2.6 thou/uL (1.20-3.40); #Monocytes 0.6 thou/uL (0.11-0.59); #Neutrophils 2.6 thou/uL (1.40-6.50); %Basophils 2.2 % (0.0-1.0); %Eosinophils 2.2 % (0.0-10.0); %Lymphocytes 43.2 % (21.0-51.0); %Monocytes 10.2 % (0.0-10.0); %Neutrophils 42.2 % (42.0-75.0); Hemoglobin 16.7 g/dL (14.0-18.0); Mean Corpuscular HGB CONC 35.9 g/dL (32.0-36.0); Mean Corpuscular Hemoglobin 33.4 pg (27.0-31.0); Mean Corpuscular Volume 93.3 fl (78.0-98.0); Mean Platelet Volume 7.6 fL (7.4-10.4); Platelet Count 214 10x3/uL (130-400); RBC Distribution Width 11.4 % (11.5-14.5); Red Blood Cell (RBC) Count 4.98 mill/uL (4.70-6.10); White Blood Cell (WBC) Count 6.1 10x3/uL (4.8-10.8)
[2022-05-08 04:59] LABS: Anion Gap 14 mmol/L (10-20); BUN (Urea Nitrogen) 19 mg/dL (8.4-25.7); Calc. Creatinine Clearance 185 mL/min (70-130); Calcium 9.3 mg/dL (7.8-10.44); Carbon Dioxide 21 mmol/L (22-29); Chloride 106 mmol/L (98-107); Estimated GFR 105; Glucose 255 mg/dL (70-105); Sodium 137 mmol/L (136-145)
[2022-05-08] MEDS ORDERED: Sodium Chloride 0.9% 1,000 ML IV SCH (06:00)
[2022-05-08] MEDS: Carvedilol 6.25 MG TAB PO SCH ×2 (06:01→16:14)
[2022-05-08] MEDS: busPIRone HCl 5 MG TAB PO SCH ×2 (06:01→22:06)
[2022-05-08] MEDS: Aspirin 325 mg Enteric Coated Tablet PO SCH (06:01)
[2022-05-08] MEDS ORDERED: Heparin 10,000 UNITS/ 10 ML VIAL ONE ×2 (06:13→07:41)
[2022-05-08] MEDS ORDERED: Lidocaine 1% (PF) 30 ML VIAL ONE (06:13)
[2022-05-08] MEDS ORDERED: FENTANYL 50 MCG/ML 1 ML VIAL ONE (06:51)
[2022-05-08] MEDS ORDERED: Midazolam HCl 2 mg/2 ml Vial ONE (06:52)
[2022-05-08] MEDS ORDERED: TICAGRELOR 90 MG TABLET ONE (07:43)
[2022-05-08] MEDS ORDERED: Nitroglycerin 0.4 MG TAB (25 Tab Bottle) SL PRN (08:38)
[2022-05-08] MEDS ORDERED: Iopamidol-370 76% 500 ML MDV (1 ML CHARGE) ONE (10:01)
[2022-05-08] MEDS ORDERED: Iopamidol 370 76% 100 ML VIAL ONE (11:01)
[2022-05-08] MEDS ORDERED: Scopolamine 1.5 mg/72 hour Patch TD SCH (13:00)
[2022-05-08] MEDS: Ondansetron PF 4 MG/2 ML Vial IVP PRN ×2 (13:29→19:21)
[2022-05-08] MEDS: Aspirin 81 mg Enteric Coated Tablet PO SCH (13:44)
[2022-05-08] MEDS: Empagliflozin 10 MG TAB PO SCH (13:44)
[2022-05-08] MEDS: TICAGRELOR 90 MG TABLET PO SCH ×2 (13:44→22:06)
[2022-05-08] MEDS: Sodium Chloride 0.9% 1,000 ML IV SCH (16:07)
[2022-05-08] MEDS: Morphine 2 MG/ML VIAL SLOW IVP PRN ×2 (16:08→19:20)
[2022-05-08] MEDS ORDERED: Morphine 4 MG/ML VIAL SLOW IVP SCH (19:30)
[2022-05-08] MEDS ORDERED: Promethazine HCl 12.5 MG in Sodium Chloride 0.9% 50 ML IVPB SCH (21:00)
[2022-05-08] MEDS: Atorvastatin Calcium 20 MG TAB PO SCH (22:06)
[2022-05-08] MEDS: Fioricet 325/50/40 mg Tablet PO PRN (22:07)
[2022-05-09] MEDS: Morphine 4 MG/ML VIAL SLOW IVP PRN ×2 (01:42→12:17)
[2022-05-09] MEDS: Ondansetron PF 4 MG/2 ML Vial IVP PRN ×2 (01:47→12:22)
[2022-05-09] MEDS: Sodium Chloride 0.9% 1,000 ML IV SCH ×3 (01:49→17:58)
[2022-05-09 04:35] LABS: #Lymphocytes 1.1 thou/uL (1.20-3.40); #Monocytes 0.8 thou/uL (0.11-0.59); #Neutrophils 10.3 thou/uL (1.40-6.50); %Basophils 0.3 % (0.0-1.0); %Eosinophils 0.1 % (0.0-10.0); %Lymphocytes 8.9 % (21.0-51.0); %Monocytes 6.6 % (0.0-10.0); %Neutrophils 84.1 % (42.0-75.0); Hemoglobin 15.8 g/dL (14.0-18.0); Mean Corpuscular HGB CONC 32.9 g/dL (32.0-36.0); Mean Corpuscular Hemoglobin 31.1 pg (27.0-31.0); Mean Corpuscular Volume 94.7 fl (78.0-98.0); Mean Platelet Volume 7.6 fL (7.4-10.4); Platelet Count 239 10x3/uL (130-400); RBC Distribution Width 11.8 % (11.5-14.5); Red Blood Cell (RBC) Count 5.08 mill/uL (4.70-6.10); White Blood Cell (WBC) Count 12.2 10x3/uL (4.8-10.8)
[2022-05-09 05:07] LABS: ALT (SGPT) 31 U/L (8-55); AST (SGOT) 18 U/L (5-34); Albumin 4.1 g/dL (3.5-5.0); Alkaline Phosphatase 46 U/L (40-110); Anion Gap 20 mmol/L (10-20); BUN (Urea Nitrogen) 14 mg/dL (8.4-25.7); Bilirubin, Total 0.7 mg/dL (0.2-1.2); Calc. Creatinine Clearance 187 mL/min (70-130); Calcium 8.7 mg/dL (7.8-10.44); Carbon Dioxide 15 mmol/L (22-29); Chloride 107 mmol/L (98-107); Estimated GFR 106; Globulin 2.6 g/dL (2.4-3.5); Glucose 188 mg/dL (70-105); Potassium 3.8 mmol/L (3.5-5.1); Protein, Total 6.7 g/dL (6.0-8.3); Sodium 138 mmol/L (136-145)
[2022-05-09] MEDS: Aspirin 81 mg Enteric Coated Tablet PO SCH (09:02)
[2022-05-09] MEDS: busPIRone HCl 5 MG TAB PO SCH ×2 (09:02→21:11)
[2022-05-09] MEDS: TICAGRELOR 90 MG TABLET PO SCH ×2 (09:03→21:11)
[2022-05-09] MEDS: Carvedilol 6.25 MG TAB PO SCH ×2 (09:03→16:20)
[2022-05-09] MEDS: Fioricet 325/50/40 mg Tablet PO PRN (09:04)
[2022-05-09] MEDS: Empagliflozin 10 MG TAB PO SCH (09:05)
[2022-05-09] MEDS ORDERED: diphenhydrAMINE 50 MG/ML VIAL IVP SCH (12:15)
[2022-05-09] MEDS ORDERED: Prochlorperazine Edisylate 10 MG in Sodium Chloride 0.9% 50 ML IVPB SCH (12:30)
[2022-05-09] MEDS ORDERED: Atorvastatin Calcium 40 MG TAB PO SCH (21:00)
[2022-05-10] MEDS: Sodium Chloride 0.9% 1,000 ML IV SCH ×2 (03:14→05:59)
[2022-05-10] MEDS ORDERED: metFORMIN 500 MG TAB PO SCH (08:00)
[2022-05-10 08:38] VITALS: TEMP 97.7
[2022-05-10] MEDS ORDERED: FLU VACC QS2022-23(6MO UP)/PF 60 MCG/0.5 ML SYRINGE IM ONE (09:00)
[2022-05-10] MEDS: Carvedilol 6.25 MG TAB PO SCH (10:22)
[2022-05-10] MEDS: Aspirin 81 mg Enteric Coated Tablet PO SCH (10:22)
[2022-05-10] MEDS: busPIRone HCl 5 MG TAB PO SCH (10:22)
[2022-05-10] MEDS: Empagliflozin 10 MG TAB PO SCH (10:23)
[2022-05-10] MEDS: TICAGRELOR 90 MG TABLET PO SCH (10:24)
[2022-05-10 13:42] VITALS: BP 129/76
== END 2022-05-10 14:09 | disposition home or self-care (01) | DRG 228 ==
LOC: ERS 01:02 → 2NO 03:30 → OBSVTOIN 05-08 15:50
PROVIDERS: ADMIT Internal Medicine; ATTEND Internal Medicine
PROC: 027034Z Dilation of Coronary Artery, One Artery with Drug-eluting Intraluminal Device, Percutaneous Approach (ICD-10-PCS; principal; 2022-05-08)
PROC: 02W Heart and Great Vessels, Revision (ICD-10-PCS; 2022-05-08)
PROC: 4A023N7 Measurement of Cardiac Sampling and Pressure, Left Heart, Percutaneous Approach (ICD-10-PCS; 2022-05-08)
PROC: B2111ZZ Fluoroscopy of Multiple Coronary Arteries using Low Osmolar Contrast (ICD-10-PCS; 2022-05-08)
PROC: B2131ZZ Fluoroscopy of Multiple Coronary Artery Bypass Grafts using Low Osmolar Contrast (ICD-10-PCS; 2022-05-08)
PROC: B2151ZZ Fluoroscopy of Left Heart using Low Osmolar Contrast (ICD-10-PCS; 2022-05-08)
DX: I97.190 Other postprocedural cardiac functional disturbances following cardiac surgery (principal); I21.4 Non-ST elevation (NSTEMI) myocardial infarction; I21.A9 Other myocardial infarction type; E87.1 Hypo-osmolality and hyponatremia; T82.857A Stenosis of other cardiac prosthetic devices, implants and grafts, initial encounter; H53.123 Transient visual loss, bilateral; I50.32 Chronic diastolic (congestive) heart failure; T82.897A Other specified complication of cardiac prosthetic devices, implants and grafts, initial encounter; Z20.822 Contact with and (suspected) exposure to COVID-19; I25.10 Atherosclerotic heart disease of native coronary artery without angina pectoris; E78.5 Hyperlipidemia, unspecified; T50.8X5A Adverse effect of diagnostic agents, initial encounter; G43.909 Migraine, unspecified, not intractable, without status migrainosus; F41.9 Anxiety disorder, unspecified; E78.00 Pure hypercholesterolemia, unspecified; I48.0 Paroxysmal atrial fibrillation; I95.89 Other hypotension; E66.01 Morbid (severe) obesity due to excess calories; Y83.1 Surgical operation with implant of artificial internal device as the cause of abnormal reaction of the patient, or of later complication, without mention of misadventure at the time of the procedure; Z68.37 Body mass index [BMI] 37.0-37.9, adult; Z28.21 Immunization not carried out because of patient refusal; Z95.1 Presence of aortocoronary bypass graft; Z95.810 Presence of automatic (implantable) cardiac defibrillator; Z79.899 Other long term (current) drug therapy; Z79.4 Long term (current) use of insulin; Z79.82 Long term (current) use of aspirin; I25.2 Old myocardial infarction; Z95.5 Presence of coronary angioplasty implant and graft; Z87.891 Personal history of nicotine dependence
CPT/HCPCS: 36415; 36416; 70450; 70496; 70498; 71045; 80048; 80053; 80061; 82550; 83690; 83880; 84484; 85025; 85347; 85379; 92928; 93005; 93010; 93306; 93459; 93798; 96372; 99152; 99153; C1725; C1769; C1874; C1887; C9600; G0378; J0780; J1200; J1644; J1650; J1815; J2001; J2250; J2270; J2272; J2405; J2550; J3010; J7050; Q9967; U0003; U0005

== ENCOUNTER 2023-08-19 13:01 | Outpatient (CLI) | payer BC ==
[2023-08-19 14:14] LABS: #Basophils 0.03 10x3/uL (0.0-0.2); #Eosinphils 0.16 10x3/uL (0.0-0.5); #Monocytes 0.55 10x3/uL (0.0-1.1); #Neutrophils 3.08 10x3/uL (1.5-8.4); %Basophils 0.5 % (0.0-2.0); %Eosinophils 2.7 % (0.0-6.0); %Lymphocytes 34.7 % (18.0-47.0); %Monocytes 9.4 % (0.0-10.0); %Neutrophils 52.4 % (40.0-75.0); Hematocrit 43.8 % (38.8-50.0); Hemoglobin 15.3 g/dL (13.5-17.5); Mean Corpuscular HGB CONC 34.9 g/dL (32.0-36.0); Mean Corpuscular Volume 88.7 fL (81.2-95.1); Mean Platelet Volume 10.5 fL (7.4-10.4); Platelet Count 204 10x3/uL (150-450); RBC Distribution Width 12.1 % (11.5-14.5); Red Blood Cell (RBC) Count 4.94 10x6/uL (4.32-5.72); White Blood Cell (WBC) Count 5.9 10x3/uL (3.5-10.5)
[2023-08-19 14:40] LABS: ALT (SGPT) 36 U/L (8-55); AST (SGOT) 19 U/L (5-34); Albumin 3.9 g/dL (3.5-5.0); Alkaline Phosphatase 51 U/L (40-110); Anion Gap 13 mmol/L (10-20); BUN (Urea Nitrogen) 11 mg/dL (8.4-25.7); Bilirubin, Total 0.6 mg/dL (0.2-1.2); Calc. Creatinine Clearance 0 mL/min (70-130); Calcium 9.5 mg/dL (7.8-10.44); Carbon Dioxide 25 mmol/L (22-29); Chloride 101 mmol/L (98-107); Estimated GFR 102; Globulin 2.4 g/dL (2.4-3.5); Potassium 4.3 mmol/L (3.5-5.1); Protein, Total 6.3 g/dL (6.0-8.3); Sodium 135 mmol/L (136-145)
[2023-08-19 14:57] LABS: Glucose 405 mg/dL (70-105)
== END 2023-08-19 13:02 | disposition home or self-care (01) ==
LOC: LABBT 13:01
PROVIDERS: ATTEND Internal Medicine Cardiovascular Disease
DX: Z01.812 Encounter for preprocedural laboratory examination (principal)
CPT/HCPCS: 80053; 85025

== ENCOUNTER 2023-08-22 05:48 | Day surgery (SDC) | payer BC ==
[2023-08-19 13:57] VITALS: BMI 38.6
[2023-08-22] MEDS ORDERED: Heparin 10,000 UNITS/ 10 ML VIAL ONE ×2 (06:30→07:53)
[2023-08-22] MEDS ORDERED: Nitroglycerin 50 MG/250 ML BOT 0 ML ONE (06:30)
[2023-08-22] MEDS ORDERED: fentaNYL 50 mcg/mL 1 mL Vial ONE (07:05)
[2023-08-22] MEDS ORDERED: Midazolam HCl 2 mg/2 ml Vial ONE (07:05)
[2023-08-22] MEDS ORDERED: TICAGRELOR 90 MG TABLET ONE (08:12)
[2023-08-22] MEDS ORDERED: Iopamidol 370 76% 100 ML VIAL ONE (10:08)
== END 2023-08-22 17:00 | disposition home or self-care (01) ==
LOC: SDC 05:48
PROVIDERS: ATTEND Internal Medicine Cardiovascular Disease
PROC: 4A023N7 Measurement of Cardiac Sampling and Pressure, Left Heart, Percutaneous Approach (ICD-10-PCS; principal; 2023-08-22)
DX: I25.10 Atherosclerotic heart disease of native coronary artery without angina pectoris (principal); I21.4 Non-ST elevation (NSTEMI) myocardial infarction; I25.5 Ischemic cardiomyopathy; I47.20 Ventricular tachycardia, unspecified; I48.0 Paroxysmal atrial fibrillation; E11.9 Type 2 diabetes mellitus without complications; I10 Essential (primary) hypertension; E78.1 Pure hyperglyceridemia; Z79.899 Other long term (current) drug therapy; Z79.84 Long term (current) use of oral hypoglycemic drugs; Z87.891 Personal history of nicotine dependence; Z95.5 Presence of coronary angioplasty implant and graft; Z95.1 Presence of aortocoronary bypass graft; Z95.810 Presence of automatic (implantable) cardiac defibrillator
CPT/HCPCS: 36416; 85347; 92928; 93005; 93459; 99152; 99153; C1725; C1769; C1874; C1887; C9600; J1644; J2250; J3010; Q9967